=== PATIENT | female | born 1945 | race Caucasian/White ===

== ENCOUNTER 2017-01-24 22:27 | Inpatient (IN) | payer MEDICAID, MEDICARE, OTHER ==
[~2017-01-24] VITALS: Ht 144.8 cm; Wt 40.4 kg
[~2017-01-24 22:27] MED LIST: ALBU2.5V13 IH; ASPI81TA31 PO; ATOR20TA PO; HYDR-4076 PO; IPRA0.2S6 NEB; LEVO500T2 PO; METO25TA6 PO; OLAN5TAB3 PO; PANT40TA2 PO; PREDNISONE PO; QUET25TA PO
--- NOTE | 2017-01-24 22:40 | NUR ---
Pt radha from [facility] for medical clearance prior to MHU admission. Pt on a 5150 for gravely disabled. Pt calm and cooperative. Resting in position of comfort for self. Awaiting further eval.
[2017-01-24] MEDS ORDERED: LISI-603 PO (22:50)
[2017-01-24] MEDS ORDERED: MAGN400O6 PO (22:50)
[2017-01-24] MEDS ORDERED: BISA10SU12 RC (22:50)
[2017-01-24] MEDS ORDERED: NA P133E RC (22:50)
[2017-01-24] MEDS ORDERED: BLOO-360 IN (22:50)
[2017-01-24] MEDS ORDERED: [UNRECOGNIZED DRUG - CODE] PO (22:50)
[2017-01-24] MEDS ORDERED: MULT1TAB73 PO (22:50)
[2017-01-24] MEDS ORDERED: ACET325T53 PO (22:50)
[2017-01-24 23:53] LABS: CARBON DIOXIDE 30 mmol/L (21-32); CHLORIDE 104 mmol/L (98-107); CREATININE 1.1 mg/dL (0.6-1.3); GLUCOSE 100 mg/dL (74-106); POTASSIUM 4.4 mmol/L (3.5-5.1); UREA NITROGEN, BLOOD 35 mg/dL (7-18)
--- NOTE | 2017-01-24 23:55 | NUR ---
Pt ambulated to and from br with steady shuffled gait. Pt resting in position of comfort for self. Pt remains calm and cooperative
[2017-01-24 23:59] LABS: BASOPHILS % (AUTO) 0.6 % (0.0-2.0); EOSINOPHILS # (AUTO) 0.1 K/uL (0.0-0.7); EOSINOPHILS % (AUTO) 1.8 % (0.0-7.0); HEMATOCRIT 36.9 % (37-47); HEMOGLOBIN 12.2 G/DL (12.0-16.0); LYMPHOCYTES # (AUTO) 3.6 K/UL (0.8-4.8); LYMPHOCYTES % (AUTO) 45.9 % (20.5-51.5); MEAN CORPUSCULAR HEMOGLOBIN 29.5 UUG (27.0-31.0); MEAN CORPUSCULAR HGB CONC 33 g/dL (32.0-37.0); MEAN CORPUSCULAR VOLUME 89.1 FL (81.0-99.0); MONOCYTES # (AUTO) 0.6 K/UL (0.1-1.30); MONOCYTES % (AUTO) 8.6 % (0.0-11.0); NEUTROPHILS # (AUTO) 3.2 K/UL (1.8-8.9); NEUTROPHILS % (AUTO) 43.1 % (38.5-71.5); PLATELET COUNT (AUTO) 171 K/UL (150-450); RED BLOOD CELL COUNT(AUTO) 4.14 MIL/UL (4.2-5.4); WHITE BLOOD COUNT (AUTO) 7.5 K/UL (4.0-11.2)
[2017-01-25 00:14] LABS: ETHANOL < 3 MG/DL (0-0)
[2017-01-25 00:15] LABS: ALANINE AMINOTRANSFERASE 19 U/L (14-59); ALKALINE PHOSPHATASE 78 U/L (50-136); ASPARTATE AMINOTRANSFERASE 20 U/L (15-37); BILIRUBIN,DIRECT 0.1 mg/dL (0.0-0.2); BILIRUBIN,TOTAL 0.4 mg/dL (0.2-1.0); TOTAL PROTEIN, SERUM 7.6 g/dL (6.4-8.2)
[2017-01-25 00:16] LABS: ACETAMINOPHEN < 2.0 ug/mL (10-30)
--- NOTE | 2017-01-25 00:30 | NUR ---
Pt medically cleared for admission.
[2017-01-25 00:40] LABS: *BILIRUBIN,URIN NEGATIVE (NEGATIVE); *BLOOD, URINE Trace-lysed (NEGATIVE); *COLOR,URINE STRAW (YELLOW); *KETONES,URINE TRACE (NEGATIVE); *PROTEIN,URINE NEGATIVE (NEGATIVE); *UROBILINOGEN,URINE 0.2 E.U./dl (NORMAL); LEUKOCYTE ESTERASE ,URINE 1+ (NEGATIVE); NITRITE, URINE NEGATIVE (NEGATIVE); UGLUCOSE NEGATIVE (NEGATIVE)
[2017-01-25 00:53] LABS: *CLARITY,URINE HAZY (CLEAR)
[2017-01-25 00:54] LABS: BACTERIA,URINE MODERATE /HPF (NONE SEEN); SQUAMOUS EPITHELIAL CELL,UR FEW /HPF (NONE SEEN); WBC,URINE 20-50 /HPF (0-3)
--- NOTE | 2017-01-25 01:00 | NUR ---
Pt resting in position of comfort for self. Resp even and unlabored. No obvious signs of distress. Pt remains calm and cooperative.
[2017-01-25 01:13] LABS: *AMPHETAMINE, URINE NEGATIVE (NEGATIVE); *BARBITURATE, URINE NEGATIVE (NEGATIVE); *CANNABINOID, URINE NEGATIVE (NEGATIVE); *COCCAINE, URINE NEGATIVE (NEGATIVE); *OPIATE, URINE NEGATIVE (NEGATIVE); *PHENCYCLIDINE SCREEN,URINE NEGATIVE (NEGATIVE)
--- NOTE | 2017-01-25 02:23 | NUR ---
Report called to JEANCARLOS Lunsford. Preparing to transfer pt to [facility].
[2017-01-25] MEDS ORDERED: LEVOFLOXACIN 500 MG TABLET PO ONE (02:30)
--- NOTE | 2017-01-25 02:32 | NUR ---
Re-entered room after given pt her ABT PO. She had spit it out behind the bed and refused any further medication. Dr. Ryan notified.
[2017-01-25] MEDS ORDERED: LEVOFLOXACIN 500 MG TABLET ONE (02:41)
[2017-01-25] MEDS ORDERED: LORAZEPAM 0.5 MG TABLET PO PRN ×2 (03:15→03:30)
[2017-01-25] MEDS ORDERED: TEMAZEPAM 7.5 MG CAPSULE PO PRN (03:15)
[2017-01-25] MEDS ORDERED: MAGNESIUM HYDROXIDE 30 ML LIQUID UDC PO PRN (03:15)
[2017-01-25] MEDS ORDERED: MAG HYDROX/AL HYDROX/SIMETH 30 ML LIQUID UDC PO PRN (03:15)
[2017-01-25] MEDS ORDERED: ACETAMINOPHEN 325 MG TABLET PO PRN (03:15)
[2017-01-25 03:34] VITALS: BP 176/97
--- NOTE | 2017-01-25 04:09 | NUR ---
GPS: Admitted to unit earlier a 71 yr.old female under the care and supervision of / who was medically cleared at our E.R. Pt.is alert to self only. Confused,disoriented and with poor insight to present situation. Pt.is anxious,restless,uncooperative and suspicious. Re-directed and re-assured frequently by staff. Skin assessment/belongings list completed. Safety emphasized. Pt.on a 72 hour hold for GD. Pt.has been refusing meds.,screaming at staff,refusing care,and has not been sleeping,per hold. Will monitor behavior.
[2017-01-25] MEDS ORDERED: HYDR25TA86 PO (04:42)
[2017-01-25] MEDS ORDERED: APRESOLINE PO (04:59)
[2017-01-25] MEDS ORDERED: [UNRECOGNIZED DRUG - OTHER] (04:59)
--- NOTE | 2017-01-25 10:00 | NUR ---
MED RECON: SPOKE WITH DR MAHER, STATES HE WILL RECONCILE MEDS.
[2017-01-25] MEDS: BENZTROPINE MESYLATE 0.5 MG TABLET PO SCH ×2 (11:45→17:00)
[2017-01-25] MEDS: HALOPERIDOL 2 MG TABLET PO SCH ×2 (11:45→17:00)
[2017-01-25] MEDS: LISINOPRIL 20 MG TABLET PO SCH (12:30)
[2017-01-25] MEDS ORDERED: BISACODYL 10 MG SUPP.RECT RC PRN (12:30)
[2017-01-25] MEDS ORDERED: FLEET ENEMA 133 ML BOTTLE RC PRN (12:30)
--- NOTE | 2017-01-25 12:31 | NUR ---
APPROACHED PATIENT CALMLY AND OFFERED HER MEDICATIONS BUT PATIENT BECAME ANGRY AND YELLING STATING " No DORIAN MEDICINA , NO DORIAN COMIDA"
[2017-01-25] MEDS: hydrALAZINE HCL 10 MG TABLET PO SCH ×2 (14:00→22:00)
[2017-01-25] MEDS ORDERED: HYDRALAZINE PO SCH (14:00)
--- NOTE | 2017-01-25 14:06 | NUR ---
UR Note: ISMA spoke with family preservation caseworker Sharita at [facility] [[phone]]. Per family preservation caseworker, patient is authorized through 01/27/17. Authorization #: [id number]. ISMA will follow up with family preservation caseworker on 01/27.
[2017-01-25] MEDS: ATORVASTATIN 10 MG TABLET PO SCH (20:12)
[2017-01-25] MEDS: CEFTRIAXONE 1 G VIAL IM SCH (20:12)
[2017-01-25] MEDS ORDERED: ATORVASTATIN 20 MG TABLET PO SCH (21:00)
[2017-01-26] MEDS: hydrALAZINE HCL 10 MG TABLET PO SCH ×3 (06:00→22:00)
[2017-01-26] MEDS: ASPIRIN 81 MG TAB.CHEW PO SCH (09:00)
[2017-01-26] MEDS ORDERED: Medication Not On Formulary EA (Multivitamins (Multivitamin) 1 EACH) PO SCH (09:00)
[2017-01-26] MEDS: MULTIVITAMINS,THERAPEUTIC TABLET PO SCH (09:00)
[2017-01-26] MEDS: HALOPERIDOL 2 MG TABLET PO SCH ×2 (09:00→17:00)
[2017-01-26] MEDS: LISINOPRIL 20 MG TABLET PO SCH (09:00)
[2017-01-26] MEDS: BENZTROPINE MESYLATE 0.5 MG TABLET PO SCH ×2 (09:00→17:00)
--- NOTE | 2017-01-26 09:43 | NUR ---
Offered morning medications twice this morning but patient strongly refused.
[2017-01-26] MEDS ORDERED: HALOPERIDOL 2 MG TABLET PO PRN (10:00)
--- NOTE | 2017-01-26 17:39 | NUR ---
patient continue to refused to take her medications due at 1700, stated " IO don't want it."
[2017-01-26 20:26] VITALS: BP 109/59
[2017-01-26] MEDS: ATORVASTATIN 10 MG TABLET PO SCH (21:00)
[2017-01-26] MEDS: CEFTRIAXONE 1 G VIAL IM SCH (21:00)
--- NOTE | 2017-01-26 21:26 | NUR ---
PATIENT RECEIVED IN ROOM AWAKE. PATIENT IS EASILY AGITATED, AND EASILY IRRITABLE WILL CONTINUE TO MONITOR AND REDIRECT NEEDED. PATIENT CONTINUES TO REFUSE MEDICATION AND VITAL SIGNS EXPLAINED THE IMPORTANCE OF TAKING MEDICATION AND VITAL SIGNS, CONTINUES TO REFUSE INCREASED ANGER NOTED. BED IN LOWEST POSITION, BED LOCKED. NO AGGRESSIVE OR COMBATIVE BEHAVIOR NOTED WILL CONTINUE TO MONITOR AND REDIRECT NEEDED.
[2017-01-27] MEDS: hydrALAZINE HCL 10 MG TABLET PO SCH ×3 (06:00→22:00)
[2017-01-27] MEDS: ASPIRIN 81 MG TAB.CHEW PO SCH (09:00)
[2017-01-27] MEDS: HALOPERIDOL 2 MG TABLET PO SCH ×2 (09:00→17:00)
[2017-01-27] MEDS: LISINOPRIL 20 MG TABLET PO SCH (09:00)
[2017-01-27] MEDS: MULTIVITAMINS,THERAPEUTIC TABLET PO SCH (09:00)
[2017-01-27] MEDS: BENZTROPINE MESYLATE 0.5 MG TABLET PO SCH ×2 (09:00→17:00)
--- NOTE | 2017-01-27 09:19 | NUR ---
PT SITTING ON THE BED IN HER ROOM. REFUSED ALL AM MEDS DESPITE ENCOURAGEMENT. STATED "NO I DON'T NEED MEDICATION, I FINISHED BREAKFAST, NO I WILL NOT TAKE THE MEDICATION". INCREASED ANGER NOTED. REDIRECTION PROVIDED. WILL CONTINUE TO MONITOR.
--- NOTE | 2017-01-27 11:34 | NUR ---
Initial DC Plan: Patient currently resides at [facility] [facility] [place] [address]; [place] ISMA spoke with Fermín at [facility] who confirmed patient will be accepted back to the facility upon discharge. ISMA will follow up with MD, patient, and patient's guardian Taran Last [[phone]] to discuss appropriate discharge plans. SW will form a safe and proper discharge.
--- NOTE | 2017-01-27 11:35 | NUR ---
UR Note: UR Note: ISMA provided clinicals over the phone to showcase maker Sharita at [facility] [[phone]]. Per showcase maker, patient is authorized through 01/30/17. Review is needed on 01/31. Authorization #: [id number]. ISMA will follow up with showcase maker on 01/31.v
--- NOTE | 2017-01-27 14:21 | NUR ---
TRIGGER FOR LOW BMI 18.8, PATIENT IS 71 Y/O FEMALE WHO PRESENT FOR BEHAVIOR ESCALATION TOLERATING CURRENT DIET(CCHO60,CARDIAC,MSOFT),EATING < 50% OF MEALS,ADD BOOST GLUOCOSE CONTORL BID,INFORMED RN DURING MENTAL HEALTH MEETING REC LIBERALIZE DIET BLOOD SUGAR 100-WNL,POC 86 BMI 18.8-UNDERWEIGHT,CURRENT WT IS 87LB, PHYSICAL ASSESSMENT REPORT SUGGEST MILD/MODERATE MUSCLE/FAT LOSS BM PRESENT,SKIN INTACT LABS: 01/24 RBC-4.14,HCT 36.9,BUN-35(H) NUTRITION DIAGNOSIS: POOR PO INTAKE RELATED TO AMS, EVIDENCED BY PO INTAKE < 50% OF MEALS INTERVENTION: REC BOOST BID,LIBERALIZE DIET MONITOR:PO INTAKE,WT,NEW LABS OUTCOME: IMPROVE IN PO INTAKE>50% IN 2-5 DAYS NO SIGNIFICANT WEIGHT CHANGES DURING HOSPITAL STAY NO SKIN BREAKDOWN NO N/V/D/C Addendum: 01/27/17 at [address] Amended: Links added.
--- NOTE | 2017-01-27 17:04 | NUR ---
PT REFUSED PM MEDS DESPITE ENCOURAGEMENT AND EDUCATION. OFFERED X2 PT STILL REFUSED. WILL MONITOR.
[2017-01-27] MEDS: ATORVASTATIN 10 MG TABLET PO SCH (20:57)
[2017-01-27] MEDS: CEFTRIAXONE 1 G VIAL IM SCH (20:57)
[2017-01-28] MEDS: hydrALAZINE HCL 10 MG TABLET PO SCH ×3 (06:00→22:00)
[2017-01-28] MEDS: HALOPERIDOL 2 MG TABLET PO SCH ×2 (08:50→16:28)
[2017-01-28] MEDS: BENZTROPINE MESYLATE 0.5 MG TABLET PO SCH ×2 (08:50→17:00)
[2017-01-28] MEDS: LISINOPRIL 20 MG TABLET PO SCH (08:50)
[2017-01-28] MEDS: ASPIRIN 81 MG TAB.CHEW PO SCH (08:50)
[2017-01-28] MEDS: MULTIVITAMINS,THERAPEUTIC TABLET PO SCH (08:51)
[2017-01-28] MEDS: HALOPERIDOL LACTATE 5 MG/1 ML VIAL IM PRN (16:31)
[2017-01-28] MEDS: CEFTRIAXONE 1 G VIAL IM SCH (20:05)
[2017-01-28] MEDS: ATORVASTATIN 10 MG TABLET PO SCH (20:06)
[2017-01-28 21:51] VITALS: BP 158/76
--- NOTE | 2017-01-28 22:06 | NUR ---
Pt REMAINS ANGRY AND LABILE. REFUSED 2200 VS AND HYDRALAZINE. Pt REFUSED EDUCATION.
[2017-01-29] MEDS: hydrALAZINE HCL 10 MG TABLET PO SCH ×3 (06:00→22:59)
--- NOTE | 2017-01-29 06:16 | NUR ---
Pt REFUSED 0600 VS AN HYDRALAZINE. EDUCATION PROVIDED TO Pt REGARDING RISKS OF NOT TAKING BP MEDICATIONS, Pt YELLED GET OUT!" Pt ALSO REFUSED AM SHOWER. SLEPT 8 HOURS.
[2017-01-29] MEDS: ASPIRIN 81 MG TAB.CHEW PO SCH (08:53)
[2017-01-29] MEDS: BENZTROPINE MESYLATE 0.5 MG TABLET PO SCH ×2 (08:53→16:28)
[2017-01-29] MEDS: MULTIVITAMINS,THERAPEUTIC TABLET PO SCH (08:54)
[2017-01-29] MEDS: LISINOPRIL 20 MG TABLET PO SCH (08:54)
[2017-01-29] MEDS: HALOPERIDOL 2 MG TABLET PO SCH ×2 (08:54→16:33)
[2017-01-29] MEDS: HALOPERIDOL LACTATE 5 MG/1 ML VIAL IM PRN ×2 (08:55→16:28)
[2017-01-29 17:33] VITALS: BP 120/60
[2017-01-29 20:09] VITALS: BP 143/72
[2017-01-29] MEDS: ATORVASTATIN 10 MG TABLET PO SCH (20:12)
[2017-01-29] MEDS: CEFTRIAXONE 1 G VIAL IM SCH (20:13)
[2017-01-30] MEDS: hydrALAZINE HCL 10 MG TABLET PO SCH ×3 (06:30→22:00)
--- NOTE | 2017-01-30 07:05 | NUR ---
Pt REF VS AND HYDRALAZINE
[2017-01-30 07:30] VITALS: BP 176/79
[2017-01-30 08:05] LABS: BASOPHILS % (AUTO) 0.2 % (0.0-2.0); EOSINOPHILS # (AUTO) 0.2 K/uL (0.0-0.7); EOSINOPHILS % (AUTO) 2.8 % (0.0-7.0); HEMATOCRIT 35.3 % (37-47); HEMOGLOBIN 11.8 G/DL (12.0-16.0); LYMPHOCYTES # (AUTO) 2.9 K/UL (0.8-4.8); LYMPHOCYTES % (AUTO) 50.1 % (20.5-51.5); MEAN CORPUSCULAR HGB CONC 34 g/dL (32.0-37.0); MEAN CORPUSCULAR VOLUME 89.2 FL (81.0-99.0); MONOCYTES # (AUTO) 0.6 K/UL (0.1-1.30); MONOCYTES % (AUTO) 10.2 % (0.0-11.0); NEUTROPHILS # (AUTO) 2.2 K/UL (1.8-8.9); NEUTROPHILS % (AUTO) 36.7 % (38.5-71.5); PLATELET COUNT (AUTO) 155 K/UL (150-450); RED BLOOD CELL COUNT(AUTO) 3.95 MIL/UL (4.2-5.4); WHITE BLOOD COUNT (AUTO) 5.9 K/UL (4.0-11.2)
[2017-01-30] MEDS: LISINOPRIL 20 MG TABLET PO SCH (08:35)
[2017-01-30] MEDS: BENZTROPINE MESYLATE 0.5 MG TABLET PO SCH ×2 (09:00→17:00)
[2017-01-30] MEDS: ASPIRIN 81 MG TAB.CHEW PO SCH (09:00)
[2017-01-30] MEDS: MULTIVITAMINS,THERAPEUTIC TABLET PO SCH (09:00)
[2017-01-30] MEDS: HALOPERIDOL 2 MG TABLET PO SCH ×2 (09:00→17:00)
[2017-01-30] MEDS: HALOPERIDOL LACTATE 5 MG/1 ML VIAL IM PRN ×2 (09:09→17:31)
[2017-01-30 09:49] LABS: ALANINE AMINOTRANSFERASE 20 U/L (14-59); ALKALINE PHOSPHATASE 71 U/L (50-136); ASPARTATE AMINOTRANSFERASE 30 U/L (15-37); BILIRUBIN,TOTAL 0.2 mg/dL (0.2-1.0); CARBON DIOXIDE 30 mmol/L (21-32); CHLORIDE 110 mmol/L (98-107); CHOLESTEROL 175 mg/dL (<200); CREATININE 1.1 mg/dL (0.6-1.3); GLUCOSE 93 mg/dL (74-106); HDL CHOLESTEROL 66 mg/dL (40-60); MAGNESIUM 2.5 mg/dL (1.8-2.4); POTASSIUM 4.7 mmol/L (3.5-5.1); TRIGLYCERIDES 64 MG/DL (30-150); UREA NITROGEN, BLOOD 40 mg/dL (7-18)
[2017-01-30 15:49] VITALS: BP 155/76
[2017-01-30 20:24] VITALS: BP 154/81
[2017-01-30] MEDS: CEFTRIAXONE 1 G VIAL IM SCH (20:25)
[2017-01-30] MEDS: ATORVASTATIN 10 MG TABLET PO SCH (20:25)
[2017-01-31] MEDS: hydrALAZINE HCL 10 MG TABLET PO SCH ×3 (06:00→21:27)
--- NOTE | 2017-01-31 07:05 | NUR ---
Pt REFUSED 2200/0600 VS AND HYDRALAZINE. CONTINUES TO REFUSE ALL PO MEDICATIONS. EDUCATION REINFORCED.
[2017-01-31 07:30] VITALS: BP 147/64
[2017-01-31] MEDS: ASPIRIN 81 MG TAB.CHEW PO SCH (09:00)
[2017-01-31] MEDS: MULTIVITAMINS,THERAPEUTIC TABLET PO SCH (09:00)
[2017-01-31] MEDS: BENZTROPINE MESYLATE 0.5 MG TABLET PO SCH ×2 (09:00→17:00)
[2017-01-31] MEDS: LISINOPRIL 20 MG TABLET PO SCH (09:00)
[2017-01-31] MEDS: HALOPERIDOL 2 MG TABLET PO SCH (09:00)
[2017-01-31] MEDS: HALOPERIDOL LACTATE 5 MG/1 ML VIAL IM PRN ×2 (09:43→17:30)
[2017-01-31] MEDS: DOCUSATE SODIUM 100 MG CAPSULE PO SCH ×2 (10:30→21:00)
--- NOTE | 2017-01-31 10:47 | NUR ---
UR Note: ISMA left clinicals over voicemail for case picker Sharita at [facility] [[phone]]. Awaiting authorization.
[2017-01-31 15:35] VITALS: BP 136/60
[2017-01-31] MEDS ORDERED: HALOPERIDOL 2 MG TABLET PO SCH (17:00)
[2017-01-31] MEDS: HALOPERIDOL 5 MG TABLET PO SCH (17:00)
[2017-01-31 20:15] VITALS: BP 137/70
[2017-01-31] MEDS: ATORVASTATIN 10 MG TABLET PO SCH (21:00)
[2017-01-31] MEDS: CEFTRIAXONE 1 G VIAL IM SCH (21:33)
--- NOTE | 2017-01-31 22:00 | NUR ---
received to care, lying in bed, isolative, but pleasant when engaged. refused all PO medications. was cooperative with IM recephin. refused a snack, but did take some water, and juice. as of 2199, she appears to be asleep. no distress noted. will continue to monitor closely.
[2017-02-01] MEDS: hydrALAZINE HCL 10 MG TABLET PO SCH ×3 (06:00→21:37)
--- NOTE | 2017-02-01 06:00 | NUR ---
slept 8.5 hours, total. refused AM hydralazine, and b/p check.
[2017-02-01 07:30] VITALS: BP 177/89
[2017-02-01] MEDS: HALOPERIDOL 5 MG TABLET PO SCH ×2 (08:29→16:52)
[2017-02-01] MEDS: LISINOPRIL 20 MG TABLET PO SCH (08:29)
[2017-02-01] MEDS: ASPIRIN 81 MG TAB.CHEW PO SCH (08:32)
[2017-02-01] MEDS: DOCUSATE SODIUM 100 MG CAPSULE PO SCH ×2 (08:32→21:00)
[2017-02-01] MEDS: MULTIVITAMINS,THERAPEUTIC TABLET PO SCH (08:32)
[2017-02-01] MEDS: BENZTROPINE MESYLATE 0.5 MG TABLET PO SCH ×2 (08:32→16:52)
--- NOTE | 2017-02-01 08:40 | NUR ---
UR Note: Per transplant case manager Sharita at [facility] [[phone]], patient is authorized through 02/02. Next review is due on 02/02.
--- NOTE | 2017-02-01 13:18 | NUR ---
PT REFUSED BP CHECKED AND MEDICATION DESPITE ENCOURAGEMENT AND EDUCATION. WILL MONITOR
[2017-02-01] MEDS: HALOPERIDOL LACTATE 5 MG/1 ML VIAL IM PRN (16:56)
[2017-02-01 20:56] VITALS: BP 143/68
[2017-02-01] MEDS: ATORVASTATIN 10 MG TABLET PO SCH (21:00)
--- NOTE | 2017-02-01 22:00 | NUR ---
received to care, lying in bed, asleep, isolative, and non interactive with peers. refused all medications. also refused food, and fluids, which were left at the bedside. as of 2199, she remains asleep. no distress noted. will continue to monitor closely.
--- NOTE | 2017-02-02 05:00 | NUR ---
is now awake. slept 9.25 hours, total.
[2017-02-02] MEDS: hydrALAZINE HCL 10 MG TABLET PO SCH ×3 (06:00→22:00)
--- NOTE | 2017-02-02 06:00 | NUR ---
refused AM hydralazine, and b/p check.
[2017-02-02 07:14] LABS: BASOPHILS % (AUTO) 0.5 % (0.0-2.0); EOSINOPHILS # (AUTO) 0.2 K/uL (0.0-0.7); HEMATOCRIT 38.4 % (31.2-41.9); LYMPHOCYTES % (AUTO) 52.7 % (20.5-51.5); MEAN CORPUSCULAR HEMOGLOBIN 30.3 uug (24.7-32.8); MEAN CORPUSCULAR HGB CONC 34 g/dL (32.3-35.6); MEAN CORPUSCULAR VOLUME 89.6 fL (75.5-95.3); MONOCYTES # (AUTO) 0.8 K/uL (2.0-10.0); NEUTROPHILS # (AUTO) 3.5 K/uL (1.8-8.9); NEUTROPHILS % (AUTO) 36.8 % (38.5-71.5); PLATELET COUNT (AUTO) 166 K/uL (179-408); RED BLOOD CELL COUNT(AUTO) 4.29 MIL/uL (3.63-4.92); WHITE BLOOD COUNT (AUTO) 9.5 K/uL (3.8-11.8)
[2017-02-02 07:30] VITALS: BP 162/72
[2017-02-02 08:20] LABS: THYROID STIMULATING HORMONE 4.427 mIU/mL (0.358-3.740)
[2017-02-02 08:27] LABS: ALANINE AMINOTRANSFERASE 28 U/L (14-59); ALKALINE PHOSPHATASE 68 U/L (50-136); ASPARTATE AMINOTRANSFERASE 45 U/L (15-37); BILIRUBIN,TOTAL 0.4 mg/dL (0.2-1.0); CARBON DIOXIDE 30 mmol/L (21-32); CHLORIDE 107 mmol/L (98-107); CREATININE 1.1 mg/dL (0.6-1.3); GLUCOSE 95 mg/dL (74-106); MAGNESIUM 2.5 mg/dL (1.8-2.4); PHOSPHOROUS 4.1 mg/dL (2.5-4.9); POTASSIUM 4.6 mmol/L (3.5-5.1); TOTAL PROTEIN, SERUM 7.8 g/dL (6.4-8.2); UREA NITROGEN, BLOOD 32 mg/dL (7-18)
[2017-02-02] MEDS: ASPIRIN 81 MG TAB.CHEW PO SCH (09:00)
[2017-02-02] MEDS: DOCUSATE SODIUM 100 MG CAPSULE PO SCH ×2 (09:00→21:00)
[2017-02-02] MEDS: LISINOPRIL 20 MG TABLET PO SCH (09:00)
[2017-02-02] MEDS: MULTIVITAMINS,THERAPEUTIC TABLET PO SCH (09:00)
[2017-02-02] MEDS: BENZTROPINE MESYLATE 0.5 MG TABLET PO SCH ×2 (09:07→17:20)
[2017-02-02] MEDS: HALOPERIDOL 5 MG TABLET PO SCH ×2 (09:07→17:20)
[2017-02-02] MEDS ORDERED: CLONIDINE-TTS 1 PATCH TD SCH (11:15)
[2017-02-02] MEDS ORDERED: HALOPERIDOL DECANOATE 50 MG/1 ML AMPUL IM ONE (12:00)
[2017-02-02 16:00] VITALS: BP 146/69
[2017-02-02 20:42] VITALS: BP 120/54
[2017-02-02] MEDS: ATORVASTATIN 10 MG TABLET PO SCH (21:00)
--- NOTE | 2017-02-02 22:00 | NUR ---
received to care, lying in bed, sleeping, but easy to awaken. refused all bedtime medications. also refused her 2199 dose of hydralazine, and b/p check (b/p at 1999 was WNL). as of 2199, she appears to be asleep. no distress noted.will continue to monitor closely.
--- NOTE | 2017-02-03 01:30 | NUR ---
pt is now awake, and wandering the hallway. continues to refuse medications. currently sitting in hallway, eating a sandwich, and drinking apple juice. remains calm, at this time. no distress noted.will continue to monitor closely.
--- NOTE | 2017-02-03 02:00 | NUR ---
appears to be asleep.
--- NOTE | 2017-02-03 06:00 | NUR ---
slept 2.0 hours, total. is now awake. assisted with AM care, and shower. was compliant with b/p check, and AM hydralazine dose. cureently sitting on her bed, eating a snack. no distress noted.
[2017-02-03] MEDS: hydrALAZINE HCL 10 MG TABLET PO SCH ×3 (06:03→22:00)
[2017-02-03 07:30] VITALS: BP 152/65
--- NOTE | 2017-02-03 08:14 | NUR ---
UR Note: On 02/02, ISMA left clinicals over voicemail for shoe parts caser Sharita at [facility] [[phone]]. ISMA called Sharita again in the afternoon to follow up. There was no answer, ISMA left a voicemail. ISMA will follow up with [facility] again today.
[2017-02-03] MEDS: DOCUSATE SODIUM 100 MG CAPSULE PO SCH ×2 (09:00→21:02)
[2017-02-03] MEDS: MULTIVITAMINS,THERAPEUTIC TABLET PO SCH (09:00)
[2017-02-03] MEDS: ASPIRIN 81 MG TAB.CHEW PO SCH (09:00)
[2017-02-03] MEDS: LISINOPRIL 20 MG TABLET PO SCH (09:27)
[2017-02-03] MEDS: BENZTROPINE MESYLATE 0.5 MG TABLET PO SCH ×2 (09:28→17:00)
[2017-02-03] MEDS: HALOPERIDOL 5 MG TABLET PO SCH ×2 (09:28→17:00)
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
[2017-02-03] MEDS ORDERED: BENZTROPINE MESYLATE 2 MG/2 ML AMPUL IM STA ×2 (13:47→17:47)
[2017-02-03] MEDS ORDERED: LORAZEPAM 2 MG/1 ML VIAL IM STA ×2 (13:47→17:47)
[2017-02-03] MEDS ORDERED: HALOPERIDOL LACTATE 5 MG/1 ML VIAL IM STA ×2 (13:47→17:47)
--- NOTE | 2017-02-03 14:23 | NUR ---
Pt attempting to AWOL standing in front of locked doors, hyperverbal aggressive, not following directions, threatening staff. Pt is combative when redirecting her. Pt given IM injections of Haldol 1mg, Ativan 1mg, Cogentin 1 mg. Pt continues to curse, yell, and attempt to AWOL after injection.
[2017-02-03 15:00] VITALS: BP 157/61
--- NOTE | 2017-02-03 15:19 | NUR ---
UR Note: ISMA left clinicals over voicemail for disease case manager rn Sharita at [facility] [[phone]]. Awaiting authorization.
--- NOTE | 2017-02-03 16:30 | NUR ---
PT IS STANDING RIGHT IN FRONT OF THE LOCKED DOORS, NOT FOLLOWING DIRECTIONS TO NOT STAND BY DOOR. PT IS DELUSIONAL , KEEPS SCREAMING "I NEED MY PANTIES BECAUSE IM LEAVING" PT TRYING TO AWOL WHEN STAFF OR VISITORS COME THROUGH DOORS. TAKES MULTIPLE STAFF MEMBERS TO PHYSICALLY REMOVE PT AWAY DOOR. PT IS YELLING, CURSING, THREATENING STAFF. COMBATIVE WHEN REDIRECTED.
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
[2017-02-03 20:33] VITALS: BP 106/52
[2017-02-03] MEDS: ATORVASTATIN 10 MG TABLET PO SCH (21:02)
[2017-02-04] MEDS: hydrALAZINE HCL 10 MG TABLET PO SCH ×3 (06:20→22:09)
[2017-02-04 07:30] VITALS: BP 101/61
[2017-02-04] MEDS: ASPIRIN 81 MG TAB.CHEW PO SCH (08:26)
[2017-02-04] MEDS: BENZTROPINE MESYLATE 0.5 MG TABLET PO SCH ×2 (08:26→17:25)
[2017-02-04] MEDS: DOCUSATE SODIUM 100 MG CAPSULE PO SCH ×2 (08:26→20:20)
[2017-02-04] MEDS: HALOPERIDOL 5 MG TABLET PO SCH ×2 (08:26→17:26)
[2017-02-04] MEDS: MULTIVITAMINS,THERAPEUTIC TABLET PO SCH (08:26)
[2017-02-04] MEDS: LISINOPRIL 20 MG TABLET PO SCH (08:32)
--- NOTE | 2017-02-04 08:46 | NUR ---
UR Note: ISMA left clinicals over voicemail for case aide Sharita at [facility] [[phone]]. Awaiting authorization.
[2017-02-04] MEDS ORDERED: HALOPERIDOL DECANOATE 50 MG/1 ML AMPUL IM ONE (09:00)
[2017-02-04] MEDS ORDERED: HALOPERIDOL 2 MG TABLET PO PRN (10:30)
[2017-02-04] MEDS ORDERED: HALOPERIDOL 5 MG TABLET PO PRN (10:45)
--- NOTE | 2017-02-04 12:40 | NUR ---
UR Note: ISMA spoke with Deloris at [facility] [[phone]] who stated patient is authorized through the weekend. Next review is due 02/07.
[2017-02-04] MEDS: ATORVASTATIN 10 MG TABLET PO SCH (20:20)
[2017-02-04 20:55] VITALS: BP 147/73
--- NOTE | 2017-02-05 06:00 | NUR ---
PATIENT WAS UNABLE TO SLEEP THROUGH THE NIGHT. SHE WAS NOTED DELUSIONAL, FLIGHT OF IDEAS, POOR INSIGHT. SHE REFUSED PO PRN MEDICATION FOR INSOMNIA; HOWEVER, SHE TOOK ATIVAN 0.5MG PO PRN FOR AGITATION AT APPROX 0557. WILL CONTINUE TO MONITOR.
[2017-02-05] MEDS: hydrALAZINE HCL 10 MG TABLET PO SCH ×3 (06:25→23:10)
--- NOTE | 2017-02-05 06:54 | NUR ---
PATIENT REFUSED BLOOD DRAWN THIS MORNING. MULTIPLE REDIRECTION WERE GIVEN; HOWEVER, SHE REFUSED.
[2017-02-05] MEDS: ASPIRIN 81 MG TAB.CHEW PO SCH (08:52)
[2017-02-05] MEDS: MULTIVITAMINS,THERAPEUTIC TABLET PO SCH (08:52)
[2017-02-05] MEDS: HALOPERIDOL 5 MG TABLET PO SCH ×2 (08:52→17:00)
[2017-02-05] MEDS: DOCUSATE SODIUM 100 MG CAPSULE PO SCH ×2 (08:52→21:00)
[2017-02-05] MEDS: BENZTROPINE MESYLATE 0.5 MG TABLET PO SCH ×2 (08:52→17:00)
[2017-02-05] MEDS: HALOPERIDOL LACTATE 5 MG/1 ML VIAL IM PRN (08:52)
[2017-02-05] MEDS: LISINOPRIL 20 MG TABLET PO SCH (08:52)
[2017-02-05] MEDS ORDERED: OLANZAPINE 10 MG VIAL IM ONE (12:30)
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
--- NOTE | 2017-02-05 13:00 | NUR ---
PT APPEARS TO HAVE GARBLED SPEECH AND HER TONGUE IS SLIGHTLY PROTRUDING FROM HER MOUTH WHILE SHE SPEAKS. NO DIFFICULTY SWALLOWING OR BREATHING. NOTIFIED DR POOLE "IT IS JUST THE MEDICATION, KEEP HER HYDRATED TO FLUSH IT OUT OF HER SYSTEM AND KEEP AN EYE ON HER. HOLD THE 1700 MEDS."
--- NOTE | 2017-02-05 14:00 | NUR ---
PT SPEECH AND TONGUE IS BACK TO BASELINE. PT CONTINUES TO BE AGGITATED, ATTACK STAFF, HAVE NOMADIC BEHAVIOR AND NEED FREQUENT REDIRECTION.
[2017-02-05 15:07] VITALS: BP 152/71
--- NOTE | 2017-02-05 19:45 | NUR ---
Patient noted in the day room, by the glass door, agitated and demanding staff to open the glass door so she could leave. Ativan 0.5mg PO PRN for agitation was offered, however patient refused. She agreed to have her vital signs taken, she stated, "I have to let you take my blood pressure if I want to leave." will continue to monitor.
[2017-02-05 20:04] VITALS: BP 170/89
--- NOTE | 2017-02-05 20:15 | NUR ---
Patient was noted in her room, in bed. QHS PO medications Lipitor and Colace were offered; however, patient refused, multiple redirection were given, yet refused. she stated that she did not need any medication. will continue to monitor.
[2017-02-05] MEDS: ATORVASTATIN 10 MG TABLET PO SCH (21:00)
--- NOTE | 2017-02-05 22:00 | NUR ---
patient noted resting in her room. Hydralazine 20mg PO Q8hrs was offered; however pt refused. multiple redirection given still refused. will continue to offered.
--- NOTE | 2017-02-05 23:10 | NUR ---
Patient is resting in her bed. Hydralazine 20mg PO Q8hrs was given.
[2017-02-06] MEDS: hydrALAZINE HCL 10 MG TABLET PO SCH ×3 (05:57→21:25)
--- NOTE | 2017-02-06 06:39 | NUR ---
PATIENT SLEPT 7.30HRS THROUGH THE NIGHT. SHE WAS COMPLIANT WITH V/S AND AM PO MEDICATION. HAD A SHOWER THIS MORNING WELL.
[2017-02-06 07:30] VITALS: BP 97/57
[2017-02-06] MEDS: HALOPERIDOL 5 MG TABLET PO SCH ×2 (08:44→16:08)
[2017-02-06] MEDS: BENZTROPINE MESYLATE 0.5 MG TABLET PO SCH ×2 (08:44→16:08)
[2017-02-06] MEDS: DOCUSATE SODIUM 100 MG CAPSULE PO SCH ×2 (08:44→20:12)
[2017-02-06] MEDS: ASPIRIN 81 MG TAB.CHEW PO SCH (08:44)
[2017-02-06] MEDS: LISINOPRIL 20 MG TABLET PO SCH (08:45)
[2017-02-06] MEDS: MULTIVITAMINS,THERAPEUTIC TABLET PO SCH (08:45)
[2017-02-06] MEDS: HALOPERIDOL LACTATE 5 MG/1 ML VIAL IM PRN ×2 (08:47→16:12)
[2017-02-06] MEDS ORDERED: MAGNESIUM HYDROXIDE 30 ML LIQUID UDC PO ONE (13:30)
[2017-02-06 15:15] VITALS: BP 113/50
[2017-02-06 19:55] VITALS: BP 118/58
[2017-02-06 19:58] VITALS: BP 106/60
[2017-02-06] MEDS: ATORVASTATIN 10 MG TABLET PO SCH (20:12)
[2017-02-07] MEDS: hydrALAZINE HCL 10 MG TABLET PO SCH ×2 (05:58→13:16)
[2017-02-07 07:30] VITALS: BP 136/62
[2017-02-07] MEDS: DOCUSATE SODIUM 100 MG CAPSULE PO SCH (08:46)
[2017-02-07] MEDS: BENZTROPINE MESYLATE 0.5 MG TABLET PO SCH ×2 (08:46→17:00)
[2017-02-07] MEDS: ASPIRIN 81 MG TAB.CHEW PO SCH (08:46)
[2017-02-07] MEDS: LISINOPRIL 20 MG TABLET PO SCH (08:47)
[2017-02-07] MEDS: HALOPERIDOL 5 MG TABLET PO SCH ×2 (08:47→17:00)
[2017-02-07] MEDS: MULTIVITAMINS,THERAPEUTIC TABLET PO SCH (08:47)
[2017-02-07] MEDS: HALOPERIDOL LACTATE 5 MG/1 ML VIAL IM PRN ×2 (10:55→17:31)
--- NOTE | 2017-02-07 12:04 | NUR ---
DC Note: Patient will be discharged to [facility] [[address] [place] [address]; ] via private transportation at 3pm. ISMA spoke with Ariel at [facility] [[phone]] who confirmed transportation arrangement [Confirmation # [id number]]. ISMA spoke with Fermín at [facility] who confirmed patient will be accepted today. ISMA left a voicemail with discharge plans for patient's conservator Taran Last [[phone]]. Patient will follow up with Dr. Gr (Extension Service Advisor) and Dr. Ceron (Psychiatrist).
[2017-02-07 16:00] VITALS: BP 116/52
--- NOTE | 2017-02-07 16:25 | NUR ---
Discharge Planning Note: ISMA spoke with Ellis at [facility] transportation services [[phone]] who stated patient will be picked up from the hospital today and transported to [facility] [[address] [place] [address]; ]. Per Ellis, pt will be provided gurney/ambulance services. Per Ellis, transportation services will call the mental health unit when a transportation time is set. Confirmation #[id number]
--- NOTE | 2017-02-07 19:25 | NUR ---
GPS: 2 attendants from [facility] here to transport pt.back to [facility]. Pt.left hospital with all her personal belongings and in stable condition. Report given to accepting nurse in the facility. No skin issues noted.
== END 2017-02-07 19:25 | DRG 885 ==
LOC: ER 22:28 → GPS 01-25 01:00
PROVIDERS: ADMIT Psychiatry & Neurology Psychosomatic Medicine; ATTEND Internal Medicine
DX: F20.0 Paranoid schizophrenia (principal); F01.51 Vascular dementia, unspecified severity, with behavioral disturbance; E44.0 Moderate protein-calorie malnutrition; E87.0 Hyperosmolality and hypernatremia; D68.59 Other primary thrombophilia; E83.41 Hypermagnesemia; D69.6 Thrombocytopenia, unspecified; N39.0 Urinary tract infection, site not specified; Z68.1 Body mass index [BMI] 19.9 or less, adult; E86.0 Dehydration; I69.919 Unspecified symptoms and signs involving cognitive functions following unspecified cerebrovascular disease; Z91.14 Patient's other noncompliance with medication regimen; I25.2 Old myocardial infarction; Z87.01 Personal history of pneumonia (recurrent); E02 Subclinical iodine-deficiency hypothyroidism; I11.9 Hypertensive heart disease without heart failure; Z74.09 Other reduced mobility; Z79.4 Long term (current) use of insulin; E11.9 Type 2 diabetes mellitus without complications; E78.5 Hyperlipidemia, unspecified; Z79.82 Long term (current) use of aspirin; Z79.899 Other long term (current) drug therapy; I25.10 Atherosclerotic heart disease of native coronary artery without angina pectoris; D64.9 Anemia, unspecified
CPT/HCPCS: 36415; 71010; 80307; 83735; 84100; 84443; 85025; 93005; A4663; G0480; G0480-TC; J0515; J0696; J1630; J1631; J2060; J2358

== ENCOUNTER 2017-11-16 12:23 | Inpatient (IN) | payer MEDICAID, OTHER ==
[~2017-11-16] VITALS: Ht 152.4 cm; Wt 38.1 kg
[~2017-11-16 12:23] MED LIST changes: +ACET325T53 PO; -ALBU2.5V13 IH; +APRESOLINE PO; +BISA10SU12 RC; +BLOO-360 IN; -HYDR-4076 PO; -IPRA0.2S6 NEB; -LEVO500T2 PO; +LISI-603 PO; +MAGN400O6 PO; -METO25TA6 PO; +MULT1TAB73 PO; +NA P133E RC; -OLAN5TAB3 PO; -PANT40TA2 PO; -PREDNISONE PO; -QUET25TA PO
--- NOTE | 2017-11-16 12:30 | NUR ---
pt in bed. pt speaking only uzbek. pt very agitated, yellling in yi. comfort measure provided.
[2017-11-16] MEDS ORDERED: OLANZAPINE 5 MG TABLET PO ONE ×2 (12:45→15:30)
[2017-11-16] MEDS ORDERED: OLANZAPINE 5 MG TABLET ONE ×2 (12:47→15:30)
[2017-11-16] MEDS ORDERED: HYDR-4075 PO (13:06)
[2017-11-16] MEDS ORDERED: DOCU100C36 PO (13:06)
[2017-11-16] MEDS ORDERED: CLON1PAT TD (13:06)
[2017-11-16] MEDS ORDERED: HYDR25TA86 GT (13:06)
[2017-11-16 13:19] LABS: BASOPHILS % (AUTO) 0.4 % (0.0-2.0); EOSINOPHILS # (AUTO) 0.2 K/uL (0.0-0.7); EOSINOPHILS % (AUTO) 3.2 % (0.0-7.0); HEMATOCRIT 34.8 % (31.2-41.9); HEMOGLOBIN 11.5 g/dL (10.9-14.3); LYMPHOCYTES # (AUTO) 2.9 K/uL (20.0-40.0); LYMPHOCYTES % (AUTO) 42.6 % (20.5-51.5); MEAN CORPUSCULAR HEMOGLOBIN 30.3 uug (24.7-32.8); MEAN CORPUSCULAR HGB CONC 33 g/dL (32.3-35.6); MEAN CORPUSCULAR VOLUME 92.1 fL (75.5-95.3); MONOCYTES # (AUTO) 0.5 K/uL (2.0-10.0); MONOCYTES % (AUTO) 7.1 % (0.0-11.0); NEUTROPHILS # (AUTO) 3.1 K/uL (1.8-8.9); NEUTROPHILS % (AUTO) 46.7 % (38.5-71.5); PLATELET COUNT (AUTO) 158 K/uL (179-408); RED BLOOD CELL COUNT(AUTO) 3.78 MIL/uL (3.63-4.92); WHITE BLOOD COUNT (AUTO) 6.7 K/uL (3.8-11.8)
--- NOTE | 2017-11-16 13:23 | NUR ---
offered pt sandwich and juice. pt refused.
[2017-11-16 13:29] LABS: CARBON DIOXIDE 26 mmol/L (21-32); CHLORIDE 107 mmol/L (98-107); GLUCOSE 95 mg/dL (74-106); POTASSIUM 3.5 mmol/L (3.5-5.1); UREA NITROGEN, BLOOD 30 mg/dL (7-18)
[2017-11-16 13:31] LABS: ETHANOL < 3 MG/DL (0-0)
[2017-11-16 13:35] LABS: ACETAMINOPHEN < 2.0 ug/mL (10-30); ALANINE AMINOTRANSFERASE 20 U/L (14-59); ALKALINE PHOSPHATASE 72 U/L (50-136); ASPARTATE AMINOTRANSFERASE 18 U/L (15-37); BILIRUBIN,DIRECT 0.1 mg/dL (0.0-0.2); BILIRUBIN,TOTAL 0.4 mg/dL (0.2-1.0); TOTAL PROTEIN, SERUM 7.3 g/dL (6.4-8.2)
[2017-11-16 15:09] LABS: *BILIRUBIN,URIN NEGATIVE (NEGATIVE); *BLOOD, URINE NEGATIVE (NEGATIVE); *CLARITY,URINE CLEAR (CLEAR); *COLOR,URINE YELLOW (YELLOW); *KETONES,URINE TRACE (NEGATIVE); *PROTEIN,URINE 1+ (NEGATIVE); *UROBILINOGEN,URINE 0.2 E.U./dl (NORMAL); LEUKOCYTE ESTERASE ,URINE 1+ (NEGATIVE); NITRITE, URINE NEGATIVE (NEGATIVE); PH,URINE 5.5 (5.0-8.0); UGLUCOSE NEGATIVE (NEGATIVE)
[2017-11-16 15:18] LABS: BACTERIA,URINE FEW /HPF (NONE SEEN); RBC,URINE 0-3 /HPF (0-3); SQUAMOUS EPITHELIAL CELL,UR FEW /HPF (NONE SEEN)
[2017-11-16] MEDS ORDERED: MAGNESIUM HYDROXIDE 30 ML LIQUID UDC PO PRN (15:30)
[2017-11-16] MEDS ORDERED: ACETAMINOPHEN 325 MG TABLET PO PRN (15:30)
[2017-11-16] MEDS ORDERED: FLEET ENEMA 133 ML BOTTLE RC PRN (15:30)
[2017-11-16] MEDS ORDERED: BISACODYL 10 MG SUPP.RECT RC PRN (15:30)
[2017-11-16 15:34] LABS: *AMPHETAMINE, URINE NEGATIVE (NEGATIVE); *BARBITURATE, URINE NEGATIVE (NEGATIVE); *CANNABINOID, URINE NEGATIVE (NEGATIVE); *COCCAINE, URINE NEGATIVE (NEGATIVE); *OPIATE, URINE NEGATIVE (NEGATIVE); *PHENCYCLIDINE SCREEN,URINE NEGATIVE (NEGATIVE)
--- NOTE | 2017-11-16 15:38 | NUR ---
TRANSFERED PT TO U.
[2017-11-16] MEDS ORDERED: DEXTROSE 50% 50 ML DISP.SYRIN IV PRN (15:45)
[2017-11-16] MEDS ORDERED: INSULIN REGULAR, HUMAN 300 UNIT/3 ML VIAL SQ PRN (15:45)
[2017-11-16] MEDS: DOCUSATE SODIUM 100 MG CAPSULE PO SCH (17:00)
[2017-11-16] MEDS: BLOOD SUGAR DIAGNOSTIC 1 EACH STRIP VI SCH ×3 (17:30→22:16)
--- NOTE | 2017-11-16 18:07 | NUR ---
1530 Admitted this 72y/o female from ER (who originally came from [facility]) transferred via wheelchair accompanied by ER nurse Arcadio. Report received from Yareli ARSHAD. Patient is alert, oriented x 1-2, confused with episodes agitation and yelling. Patient admitted to Mental Health Unit under 5150 for gravely disabled. Patient denies any pain or discomfort at this time. VS BP 131/69, P 66, RR 18, T 98.0, O2 Sat 96% at RA. Body check done, skin intact. On 72 hr hold for GD 11/16/[address] Galan notified. Dr. Laguerre notified and medications reconciled. Geropsyche admission done. Addendum: 11/16/17 at 1832 by SIRI CHONG RN Addendum: Patient refused picture taken for brownish discoloration on sacrum. Addendum: 11/16/17 at 1921 by SIRI CHONG RN correction: Patient admitted at 2059
[2017-11-16] MEDS: CLONIDINE-TTS 1 PATCH TD SCH ×2 (21:00→22:16)
[2017-11-16] MEDS: ATORVASTATIN 20 MG TABLET PO SCH (21:00)
[2017-11-16] MEDS: hydrALAZINE HCL 10 MG TABLET PO SCH (21:53)
--- NOTE | 2017-11-16 22:30 | NUR ---
received to care, ambulating about unit, yelling intermittently, refusing care, meds, and vital signs. no interactions with peers, difficult to redirect. was compliant with placement of catapres patch and accu check. otherwise remains non compliant. as of 2229, she appears to be asleep. no distress noted. will continue to monitor closely.
[2017-11-17] MEDS: hydrALAZINE HCL 10 MG TABLET PO SCH ×3 (06:00→22:00)
--- NOTE | 2017-11-17 06:00 | NUR ---
slept 4.25 hours. refused am hydralazine and b/p check, but was compliant with accucheck. currently talking to self.
[2017-11-17] MEDS: BLOOD SUGAR DIAGNOSTIC 1 EACH STRIP VI SCH ×5 (06:30→21:00)
[2017-11-17 07:13] LABS: BASOPHILS # (AUTO) 0.1 K/uL (0.0-8.0); BASOPHILS % (AUTO) 0.6 % (0.0-2.0); EOSINOPHILS # (AUTO) 0.3 K/uL (0.0-0.7); EOSINOPHILS % (AUTO) 3.1 % (0.0-7.0); HEMATOCRIT 35.9 % (31.2-41.9); HEMOGLOBIN 11.8 g/dL (10.9-14.3); LYMPHOCYTES # (AUTO) 3.9 K/uL (20.0-40.0); LYMPHOCYTES % (AUTO) 45.5 % (20.5-51.5); MEAN CORPUSCULAR HEMOGLOBIN 30.5 uug (24.7-32.8); MEAN CORPUSCULAR HGB CONC 33 g/dL (32.3-35.6); MEAN CORPUSCULAR VOLUME 92.6 fL (75.5-95.3); MONOCYTES # (AUTO) 0.7 K/uL (2.0-10.0); MONOCYTES % (AUTO) 8.2 % (0.0-11.0); NEUTROPHILS # (AUTO) 3.7 K/uL (1.8-8.9); NEUTROPHILS % (AUTO) 42.6 % (38.5-71.5); PLATELET COUNT (AUTO) 170 K/uL (179-408); RED BLOOD CELL COUNT(AUTO) 3.88 MIL/uL (3.63-4.92); WHITE BLOOD COUNT (AUTO) 8.7 K/uL (3.8-11.8)
[2017-11-17 08:07] LABS: ALANINE AMINOTRANSFERASE 21 U/L (14-59); ALKALINE PHOSPHATASE 69 U/L (50-136); ASPARTATE AMINOTRANSFERASE 23 U/L (15-37); BILIRUBIN,TOTAL 0.4 mg/dL (0.2-1.0); CARBON DIOXIDE 29 mmol/L (21-32); CHLORIDE 106 mmol/L (98-107); CREATININE 1.1 mg/dL (0.6-1.3); GLUCOSE 113 mg/dL (74-106); MAGNESIUM 2.1 mg/dL (1.8-2.4); POTASSIUM 4.5 mmol/L (3.5-5.1); TOTAL PROTEIN, SERUM 7.3 g/dL (6.4-8.2); UREA NITROGEN, BLOOD 24 mg/dL (7-18)
[2017-11-17 08:15] LABS: THYROID STIMULATING HORMONE 3.833 mIU/mL (0.358-3.740)
[2017-11-17] MEDS: ASPIRIN 81 MG TAB.CHEW PO SCH (08:26)
[2017-11-17] MEDS: DOCUSATE SODIUM 100 MG CAPSULE PO SCH ×2 (08:27→16:52)
[2017-11-17] MEDS: HALOPERIDOL 5 MG TABLET PO SCH ×2 (08:27→16:53)
[2017-11-17] MEDS: LISINOPRIL 20 MG TABLET PO SCH (08:27)
[2017-11-17] MEDS ORDERED: hydrALAZINE HCL 25 MG TABLET GT SCH (09:00)
[2017-11-17] MEDS ORDERED: HALOPERIDOL LACTATE 5 MG/1 ML VIAL IM ONE (11:00)
[2017-11-17] MEDS ORDERED: BENZTROPINE MESYLATE 2 MG/2 ML AMPUL IM ONE (11:00)
[2017-11-17] MEDS ORDERED: LORAZEPAM 2 MG/1 ML VIAL IM ONE (11:00)
--- NOTE | 2017-11-17 15:49 | NUR ---
UR Note: Received call from [facility] Wire CoinerBONNY. Assigned MHN Retort Pre Cooker for the patient is Navid Salgado ([phone]). Auth#[id number]. 3 days approved (11/16-11/18) with clinical review due on 11/18/17. SW will continue to follow-up.
[2017-11-17] MEDS: ATORVASTATIN 20 MG TABLET PO SCH (21:00)
--- NOTE | 2017-11-17 21:00 | NUR ---
pt is visible in the unit, with periods of inappropriate laughter, (laughing loud). resistive to care, Refused vital signs, medications and blood sugar accu-check. remains high awol risk, stands by the door, requiring frequent redirection. continue to monitor closely.
--- NOTE | 2017-11-18 03:20 | NUR ---
PT AWAKE IN HER ROOM, TALKING OUT LOUD, WAKING UP HER ROOM MATE. PT IS VISIBLY UPSET AND AT THE SAME TIME, HANDING OUT HER PAIR OF JANEY PANTS SAYING " I DON'T WANT IT". THEN GETS UP ABRUPTLY TO WALK OUT FROM HER ROOM. PT SITS NEAR THE NURSING STATION LAUGHING VERY LOUDLY. SNACKS OFFERED, PT DECLINED, PT WAS REDIRECTED TO THE DAY ROOM TO SIT IN THERE. PERIODICALLY, PT IS TALKING VERY LOUDLY TO HER SELF. CONTINUE TO MONITOR CLOSELY.
[2017-11-18] MEDS: hydrALAZINE HCL 10 MG TABLET PO SCH ×3 (06:00→22:00)
[2017-11-18] MEDS: BLOOD SUGAR DIAGNOSTIC 1 EACH STRIP VI SCH ×4 (07:30→22:00)
[2017-11-18] MEDS: ASPIRIN 81 MG TAB.CHEW PO SCH (08:45)
[2017-11-18] MEDS: HALOPERIDOL 5 MG TABLET PO SCH ×2 (08:46→17:00)
[2017-11-18] MEDS: LISINOPRIL 20 MG TABLET PO SCH (08:46)
[2017-11-18] MEDS: DOCUSATE SODIUM 100 MG CAPSULE PO SCH ×2 (08:46→17:00)
--- NOTE | 2017-11-18 10:56 | NUR ---
Initial Discharge Instructions: Patient currently resides at [facility] [[address] [place] [address]; ]. Spoke with Fermín at the facility who states they are willing to accept the patient back upon discharge. ISMA spoke with Public Guardian Duty Worker of the Day, Katya ([phone]) who reports that patient is no longer conserved, and her case was terminated on 10/25/17 due to no MD testimony in the case. ISMA will continue to collaborate with pt and MD regarding appropriate discharge plans for this patient. ISMA will form a safe and proper discharge plan.
--- NOTE | 2017-11-18 15:34 | NUR ---
UR Note: Provided clinicals to Xuan Salgado ([phone]). Auth#[id number]. Received call back stating patient is authorized through 11/21/17 with review due on that day. SW will continue to follow-up.
[2017-11-18] MEDS: ATORVASTATIN 20 MG TABLET PO SCH (22:00)
[2017-11-19] MEDS: hydrALAZINE HCL 10 MG TABLET PO SCH ×3 (06:00→22:00)
[2017-11-19] MEDS: BLOOD SUGAR DIAGNOSTIC 1 EACH STRIP VI SCH ×4 (07:30→21:00)
[2017-11-19] MEDS: HALOPERIDOL 5 MG TABLET PO SCH ×2 (08:20→17:00)
[2017-11-19] MEDS: DOCUSATE SODIUM 100 MG CAPSULE PO SCH ×2 (08:20→17:00)
[2017-11-19] MEDS: LISINOPRIL 20 MG TABLET PO SCH (08:20)
[2017-11-19] MEDS: ASPIRIN 81 MG TAB.CHEW PO SCH (08:20)
[2017-11-19] MEDS: ATORVASTATIN 20 MG TABLET PO SCH (21:00)
[2017-11-20] MEDS: hydrALAZINE HCL 10 MG TABLET PO SCH ×3 (06:00→21:31)
[2017-11-20] MEDS: BLOOD SUGAR DIAGNOSTIC 1 EACH STRIP VI SCH ×4 (06:07→21:00)
[2017-11-20] MEDS: DOCUSATE SODIUM 100 MG CAPSULE PO SCH ×2 (09:00→17:00)
[2017-11-20] MEDS: HALOPERIDOL 5 MG TABLET PO SCH ×2 (09:00→17:00)
[2017-11-20] MEDS: LISINOPRIL 20 MG TABLET PO SCH (09:00)
[2017-11-20] MEDS: ASPIRIN 81 MG TAB.CHEW PO SCH (09:00)
[2017-11-20] MEDS: ATORVASTATIN 20 MG TABLET PO SCH (21:00)
[2017-11-21] MEDS: hydrALAZINE HCL 10 MG TABLET PO SCH ×3 (06:00→22:00)
[2017-11-21] MEDS: BLOOD SUGAR DIAGNOSTIC 1 EACH STRIP VI SCH ×4 (07:02→20:36)
[2017-11-21] MEDS: ASPIRIN 81 MG TAB.CHEW PO SCH (09:00)
[2017-11-21] MEDS: HALOPERIDOL 5 MG TABLET PO SCH ×2 (09:00→20:36)
[2017-11-21] MEDS: DOCUSATE SODIUM 100 MG CAPSULE PO SCH ×2 (09:00→17:00)
[2017-11-21] MEDS: LISINOPRIL 20 MG TABLET PO SCH (09:00)
[2017-11-21] MEDS ORDERED: HALOPERIDOL LACTATE 5 MG/1 ML VIAL IM PRN (13:45)
--- NOTE | 2017-11-21 13:45 | NUR ---
UR Note: Provided clinicals for review to VALENTINA Salgado ([phone]). Auth#[id number]. Awaiting further authorization. SW will continue to follow-up.
[2017-11-21 18:10] LABS: *VITAMIN D 25-OH VIT D 19 ng/mL (.); *VITAMIN D 25-OH, D2 <1.0 ng/mL (.); *VITAMIN D 25-OH, D3 19 ng/mL (.)
[2017-11-21] MEDS: ATORVASTATIN 20 MG TABLET PO SCH (20:36)
[2017-11-21] MEDS: BENZTROPINE MESYLATE 0.5 MG TABLET PO SCH (20:36)
[2017-11-21] MEDS: BENZTROPINE MESYLATE 2 MG/2 ML AMPUL IM PRN (20:57)
[2017-11-22] MEDS: hydrALAZINE HCL 10 MG TABLET PO SCH ×3 (06:00→22:00)
[2017-11-22] MEDS: BLOOD SUGAR DIAGNOSTIC 1 EACH STRIP VI SCH ×4 (06:27→21:00)
[2017-11-22] MEDS ORDERED: HALOPERIDOL LACTATE 5 MG/1 ML VIAL IM PRN (08:00)
[2017-11-22] MEDS: LISINOPRIL 20 MG TABLET PO SCH (09:00)
[2017-11-22] MEDS: BENZTROPINE MESYLATE 0.5 MG TABLET PO SCH ×2 (09:00→21:00)
[2017-11-22] MEDS: DOCUSATE SODIUM 100 MG CAPSULE PO SCH ×2 (09:00→17:00)
[2017-11-22] MEDS: ASPIRIN 81 MG TAB.CHEW PO SCH (09:00)
[2017-11-22] MEDS: HALOPERIDOL 5 MG TABLET PO SCH ×2 (09:00→21:00)
--- NOTE | 2017-11-22 15:28 | NUR ---
UR Note: Placed follow-up call to [facility] SHAHEEN Salgado ([phone]) and provided daily clinicals. Auth#[id number]. Awaiting further authorization. SW will continue to follow-up. Addendum: 11/22/17 at 1559 by XIMENA OROZCO SW Received call from Medical Observer, Navid. Patient authorized 3 additional days (11/22/17-11/24/17) with review due on 11/25/17. Auth#[id number]. SW will continue to follow-up.
[2017-11-22] MEDS: ATORVASTATIN 20 MG TABLET PO SCH (21:00)
--- NOTE | 2017-11-22 22:00 | NUR ---
patient continues to refused all po medication. haldol 5mg IM given as ordered with cogentin 1mg IM,checked BP prior to IM shot, 169/84, pt continues to upset her room by turning on the light in the room while room mate is attempting to sleep.pt is very psychotic. will continue close monitoring.
[2017-11-22] MEDS ORDERED: HALOPERIDOL LACTATE 5 MG/1 ML VIAL IM ONE (23:00)
--- NOTE | 2017-11-22 23:00 | NUR ---
STAFF ABLE TO OBTAIN BP AFTER PT REFUSED AT THE BEGINNING OF THE SHIFT, BP 169/84, HR 101, PO CLONIDINE 0.1MG OFFERED, ORDERED FOR PRN SBP >160, PT DECLINED SAYING "NO NO..", YELLING OUT LOUD AND WALKED AWAY FROM STAFF MAKING HAND GESTURES IN A THREATENING MANNER TO THE STAFF.
[2017-11-22] MEDS: BENZTROPINE MESYLATE 2 MG/2 ML AMPUL IM PRN (23:07)
[2017-11-23] MEDS: hydrALAZINE HCL 10 MG TABLET PO SCH ×3 (06:00→22:00)
[2017-11-23] MEDS: BLOOD SUGAR DIAGNOSTIC 1 EACH STRIP VI SCH ×4 (07:30→21:00)
[2017-11-23] MEDS: ASPIRIN 81 MG TAB.CHEW PO SCH (09:00)
[2017-11-23] MEDS: BENZTROPINE MESYLATE 0.5 MG TABLET PO SCH ×2 (09:00→17:00)
[2017-11-23] MEDS: HALOPERIDOL 5 MG TABLET PO SCH ×2 (09:00→17:00)
[2017-11-23] MEDS: LISINOPRIL 20 MG TABLET PO SCH (09:00)
[2017-11-23] MEDS: DOCUSATE SODIUM 100 MG CAPSULE PO SCH ×2 (09:00→17:00)
[2017-11-23] MEDS ORDERED: HALOPERIDOL LACTATE 5 MG/1 ML VIAL IM ONE (10:30)
[2017-11-23] MEDS: BENZTROPINE MESYLATE 2 MG/2 ML AMPUL IM PRN (10:59)
[2017-11-23 11:10] VITALS: BP 125/54
[2017-11-23] MEDS ORDERED: HALOPERIDOL LACTATE 5 MG/1 ML VIAL IM PRN (12:15)
[2017-11-23] MEDS ORDERED: BENZTROPINE MESYLATE 2 MG/2 ML AMPUL IM PRN (12:30)
--- NOTE | 2017-11-23 13:57 | NUR ---
Firearms Report: Journalism Internship completed and submitted [employer] report on 11/23/17 for 5250 grave disability certification.
[2017-11-23 15:00] VITALS: BP 138/77
[2017-11-23 18:21] VITALS: BP 152/63
[2017-11-23] MEDS: ATORVASTATIN 20 MG TABLET PO SCH (21:00)
[2017-11-24] MEDS: hydrALAZINE HCL 10 MG TABLET PO SCH ×3 (06:00→22:52)
[2017-11-24] MEDS: BLOOD SUGAR DIAGNOSTIC 1 EACH STRIP VI SCH ×4 (07:30→21:00)
[2017-11-24] MEDS: ASPIRIN 81 MG TAB.CHEW PO SCH (08:48)
[2017-11-24] MEDS: DOCUSATE SODIUM 100 MG CAPSULE PO SCH ×2 (08:48→17:33)
[2017-11-24] MEDS: BENZTROPINE MESYLATE 0.5 MG TABLET PO SCH ×2 (08:48→17:33)
[2017-11-24] MEDS: HALOPERIDOL 5 MG TABLET PO SCH ×2 (08:48→17:33)
[2017-11-24] MEDS: LISINOPRIL 20 MG TABLET PO SCH (08:49)
--- NOTE | 2017-11-24 12:39 | NUR ---
UR Note: ISMA provided clinicals to [facility] Building Coordinator, Navid ([phone]) for concurrent review. Auth#[id number]. Awaiting further authorization. ISMA will continue to follow-up. Addendum: 11/24/17 at 1458 by XIMENA ASHBY Received return call from Navid. Patient authorized 4 additional days (11/25-11/28) with review due on 11/28. ISMA will continue to follow-up.
[2017-11-24 20:12] VITALS: BP 177/82
[2017-11-24] MEDS: CLONIDINE HCL 0.1 MG TABLET PO PRN (21:15)
[2017-11-24] MEDS: ATORVASTATIN 20 MG TABLET PO SCH (21:15)
[2017-11-25] MEDS: hydrALAZINE HCL 10 MG TABLET PO SCH ×4 (06:52→21:27)
[2017-11-25] MEDS: BLOOD SUGAR DIAGNOSTIC 1 EACH STRIP VI SCH ×4 (06:52→20:29)
[2017-11-25] MEDS: CLONIDINE HCL 0.1 MG TABLET PO PRN (06:56)
--- NOTE | 2017-11-25 06:57 | NUR ---
PT IS STILL PSYCHOTIC BUT LESS, TOOK PO MEDS BUT SELECTIVE, COMPLAINING THAT BLOOD IS BEING DRAWN ON HER BUTT, PROBABLY REFERRING TO THE INJECTIONS SHE RECEIVING DUE TO REISE.
[2017-11-25] MEDS: LISINOPRIL 20 MG TABLET PO SCH (10:00)
[2017-11-25] MEDS: DOCUSATE SODIUM 100 MG CAPSULE PO SCH ×2 (10:13→18:01)
[2017-11-25] MEDS: HALOPERIDOL 5 MG TABLET PO SCH (10:13)
[2017-11-25] MEDS: BENZTROPINE MESYLATE 0.5 MG TABLET PO SCH ×2 (10:14→18:01)
[2017-11-25] MEDS: ASPIRIN 81 MG TAB.CHEW PO SCH (10:14)
[2017-11-25 10:33] VITALS: BP 111/52
[2017-11-25] MEDS ORDERED: HALOPERIDOL 5 MG TABLET PO SCH (17:00)
[2017-11-25 17:22] VITALS: BP 110/51
--- NOTE | 2017-11-25 17:33 | NUR ---
GPS/RN - PATIENT ABLE TO COMPLY WITH EKG, DR VERAS NOTIFIED OF RESULTS, PATIENT TO RECEIVE HALDOL DECANOATE TOMORROW NEED BASELINE QT PROLONGATION BASELINE.
[2017-11-25] MEDS: ATORVASTATIN 20 MG TABLET PO SCH (20:29)
--- NOTE | 2017-11-25 20:50 | NUR ---
Pt refused HS accu check and Lipitor. Agitated and angry, Pt screamed at staff to get out of her room.
[2017-11-25 21:04] VITALS: BP 125/50
[2017-11-26] MEDS: hydrALAZINE HCL 10 MG TABLET PO SCH ×3 (06:00→20:31)
[2017-11-26] MEDS: BLOOD SUGAR DIAGNOSTIC 1 EACH STRIP VI SCH ×4 (06:35→20:31)
--- NOTE | 2017-11-26 06:45 | NUR ---
REFUSED 0600 VS/HYDRALAZINE, REFUSED AM ACCU CHECKS. REMAINS PARANOID AND EASILY AGITATED.
[2017-11-26 07:30] VITALS: BP 96/68
[2017-11-26] MEDS: ASPIRIN 81 MG TAB.CHEW PO SCH (08:21)
[2017-11-26] MEDS: BENZTROPINE MESYLATE 0.5 MG TABLET PO SCH ×2 (08:21→17:28)
[2017-11-26] MEDS: HALOPERIDOL 5 MG TABLET PO SCH ×2 (08:21→17:28)
[2017-11-26] MEDS: DOCUSATE SODIUM 100 MG CAPSULE PO SCH ×2 (09:00→17:00)
[2017-11-26] MEDS: LISINOPRIL 20 MG TABLET PO SCH (09:00)
[2017-11-26 15:34] VITALS: BP 136/41
[2017-11-26 20:22] VITALS: BP 144/79
[2017-11-26] MEDS: ATORVASTATIN 20 MG TABLET PO SCH (20:30)
[2017-11-27 07:30] VITALS: BP 152/52
[2017-11-27] MEDS: BLOOD SUGAR DIAGNOSTIC 1 EACH STRIP VI SCH ×4 (07:30→20:34)
[2017-11-27] MEDS: HALOPERIDOL 5 MG TABLET PO SCH ×2 (08:36→18:00)
[2017-11-27] MEDS: ASPIRIN 81 MG TAB.CHEW PO SCH (08:37)
[2017-11-27] MEDS: DOCUSATE SODIUM 100 MG CAPSULE PO SCH ×2 (08:37→17:59)
[2017-11-27] MEDS: LISINOPRIL 20 MG TABLET PO SCH (08:37)
[2017-11-27] MEDS: BENZTROPINE MESYLATE 0.5 MG TABLET PO SCH ×2 (11:01→17:59)
[2017-11-27] MEDS: hydrALAZINE HCL 10 MG TABLET PO SCH ×2 (14:00→21:03)
[2017-11-27 15:55] VITALS: BP 134/62
[2017-11-27 20:15] VITALS: BP 124/50
[2017-11-27] MEDS: ATORVASTATIN 20 MG TABLET PO SCH (20:35)
[2017-11-28] MEDS: hydrALAZINE HCL 10 MG TABLET PO SCH ×3 (06:51→21:16)
[2017-11-28] MEDS: BLOOD SUGAR DIAGNOSTIC 1 EACH STRIP VI SCH ×4 (06:52→20:47)
[2017-11-28 07:30] VITALS: BP 131/55
[2017-11-28] MEDS: ASPIRIN 81 MG TAB.CHEW PO SCH (08:19)
[2017-11-28] MEDS: HALOPERIDOL 5 MG TABLET PO SCH ×2 (08:19→16:57)
[2017-11-28] MEDS: LISINOPRIL 20 MG TABLET PO SCH (08:20)
[2017-11-28] MEDS: DOCUSATE SODIUM 100 MG CAPSULE PO SCH ×2 (08:20→16:57)
[2017-11-28] MEDS: BENZTROPINE MESYLATE 0.5 MG TABLET PO SCH ×2 (08:20→16:57)
--- NOTE | 2017-11-28 12:37 | NUR ---
UR Note: ISMA provided clinicals to [facility] Potato Peeler, Navid ([phone]) for concurrent review. Auth#[id number]. Awaiting further authorization. ISMA will continue to follow-up Addendum: 11/29/17 at 0935 by JUAN RAMON BALLARD Received call back from Potato PeelerNavid. Patient authorized 1 additional day (11/29) with review due on 11/29/17. ISMA will continue to follow-up.
[2017-11-28 15:48] VITALS: BP 123/50
[2017-11-28 19:30] VITALS: BP 125/45
[2017-11-28] MEDS: ATORVASTATIN 20 MG TABLET PO SCH (20:48)
[2017-11-29] MEDS: hydrALAZINE HCL 10 MG TABLET PO SCH ×3 (06:09→21:56)
[2017-11-29] MEDS: BLOOD SUGAR DIAGNOSTIC 1 EACH STRIP VI SCH (06:32)
[2017-11-29 07:30] VITALS: BP 120/56
[2017-11-29] MEDS: BENZTROPINE MESYLATE 0.5 MG TABLET PO SCH ×2 (10:18→17:33)
[2017-11-29] MEDS: DOCUSATE SODIUM 100 MG CAPSULE PO SCH ×2 (10:18→17:35)
[2017-11-29] MEDS: ASPIRIN 81 MG TAB.CHEW PO SCH (10:18)
[2017-11-29] MEDS: LISINOPRIL 20 MG TABLET PO SCH (10:19)
[2017-11-29] MEDS: HALOPERIDOL 5 MG TABLET PO SCH ×2 (10:19→17:33)
[2017-11-29 19:30] VITALS: BP 132/52
[2017-11-29] MEDS: ATORVASTATIN 20 MG TABLET PO SCH (20:11)
[2017-11-30] MEDS: hydrALAZINE HCL 10 MG TABLET PO SCH ×2 (05:32→13:20)
[2017-11-30 07:30] VITALS: BP 141/58
[2017-11-30] MEDS: BENZTROPINE MESYLATE 0.5 MG TABLET PO SCH (08:36)
[2017-11-30] MEDS: DOCUSATE SODIUM 100 MG CAPSULE PO SCH (08:36)
[2017-11-30] MEDS: HALOPERIDOL 5 MG TABLET PO SCH (08:36)
[2017-11-30] MEDS: ASPIRIN 81 MG TAB.CHEW PO SCH (08:36)
[2017-11-30] MEDS: LISINOPRIL 20 MG TABLET PO SCH (08:37)
--- NOTE | 2017-11-30 11:13 | NUR ---
Discharge Note: Patient will be discharged back to [facility] [[address] [place] [place] [address]; ] via ambulance. Please arrange an ambulance for this patient. Spoke with the biztalk consultant, Jett who states they are ready to accept this patient today. Patient does not have any contact numbers at this time. Patient is alert and oriented x2 and is cooperative. Patient will follow-up at the facility with Dr. Henriquez (Esthetician Facialist) and Dr. Ceron (Psychiatrist).
[2017-11-30 13:13] VITALS: BP 129/54
[2017-11-30 13:20] VITALS: BP 129/54
--- NOTE | 2017-11-30 15:30 | NUR ---
GPS/RN- Discharge note Patient oriented to self place and partial time, compliant with meds, anxious and paranoid redirectable no combative behavior no hallucinations noted, unable to provide discharge instructions, anxious, reinforced to Nurse JEANCARLOS Hernandez at her facility. Patient will be discharged back to [facility] [[address] [place] [address]; ] via ambulance.. Patient will follow-up at the facility with Dr. Henriquez (Mold Setter) and Dr. Ceron (Psychiatrist). belongings returned. stable condition.
--- NOTE | 2017-11-30 16:15 | NUR ---
UR Note: ISMA provided discharge clinicals to [facility] Merchandise Stocker, Navid ([phone]). Auth#[id number] SW will continue to follow-up if needed.
== END 2017-11-30 16:00 | DRG 885 ==
LOC: ER 12:23 → GPS 15:30
PROVIDERS: ADMIT Psychiatry & Neurology Psychosomatic Medicine; ATTEND Nurse Practitioner Acute Care
DX: F25.0 Schizoaffective disorder, bipolar type (principal); N18.9 Chronic kidney disease, unspecified; E78.5 Hyperlipidemia, unspecified; E86.0 Dehydration; E10.22 Type 1 diabetes mellitus with diabetic chronic kidney disease; I13.10 Hypertensive heart and chronic kidney disease without heart failure, with stage 1 through stage 4 chronic kidney disease, or unspecified chronic kidney disease; G47.00 Insomnia, unspecified; K21.9 Gastro-esophageal reflux disease without esophagitis; F03.90 Unspecified dementia, unspecified severity, without behavioral disturbance, psychotic disturbance, mood disturbance, and anxiety; R79.89 Other specified abnormal findings of blood chemistry; Z86.73 Personal history of transient ischemic attack (TIA), and cerebral infarction without residual deficits; Z87.01 Personal history of pneumonia (recurrent); Z79.82 Long term (current) use of aspirin; Z79.4 Long term (current) use of insulin; Z79.899 Other long term (current) drug therapy; Z91.14 Patient's other noncompliance with medication regimen; E78.00 Pure hypercholesterolemia, unspecified
CPT/HCPCS: 36415; 80307; 83735; 84443; 85025; 93005; A4663; G0480; G0480-TC; J0515; J1630; J1815

== ENCOUNTER 2018-09-07 19:47 | Inpatient (IN) | payer MEDICARE, MEDICAID ==
[~2018-09-07] VITALS: Ht 152.4 cm; Wt 39.5 kg
[~2018-09-07 19:47] MED LIST changes: -APRESOLINE PO; +CLON1PAT TD; +DOCU100C36 PO; +HYDR-4075 PO; +HYDR25TA86 GT
[2018-09-07] MEDS ORDERED: HALO2ORA PO (20:10)
[2018-09-07] MEDS ORDERED: ATORVASTATIN 10 MG TABLET (20:10)
[2018-09-07] MEDS ORDERED: BENZTROPINE MES 1 MG TABLET (20:10)
--- NOTE | 2018-09-07 20:15 | NUR ---
Pt is here for medical clearence, on 5150 hold. Pt is Jamaican Speaking, a/o x3, skin w/d/i w/ assessment unremarkable. Pt denies any pain or discomfort at this time, medicated per MDO. Vs 98.0, 83, 20, 98% on ra, 157/84
[2018-09-07 20:23] LABS: BASOPHILS # (AUTO) 0.1 K/uL (0.0-8.0); BASOPHILS % (AUTO) 1.3 % (0.0-2.0); EOSINOPHILS # (AUTO) 0.2 K/uL (0.0-0.7); EOSINOPHILS % (AUTO) 2.3 % (0.0-7.0); HEMATOCRIT 34.9 % (31.2-41.9); HEMOGLOBIN 11.4 g/dL (10.9-14.3); LYMPHOCYTES # (AUTO) 3.2 K/uL (20.0-40.0); MEAN CORPUSCULAR HEMOGLOBIN 29.2 uug (24.7-32.8); MEAN CORPUSCULAR HGB CONC 33 g/dL (32.3-35.6); MEAN CORPUSCULAR VOLUME 89.6 fL (75.5-95.3); MONOCYTES # (AUTO) 0.4 K/uL (2.0-10.0); MONOCYTES % (AUTO) 5.2 % (0.0-11.0); NEUTROPHILS # (AUTO) 3.6 K/uL (1.8-8.9); NEUTROPHILS % (AUTO) 48.2 % (38.5-71.5); PLATELET COUNT (AUTO) 200 K/uL (179-408); WHITE BLOOD COUNT (AUTO) 7.4 K/uL (3.8-11.8)
[2018-09-07] MEDS ORDERED: OLANZAPINE 5 MG TABLET ONE (20:26)
[2018-09-07 20:28] LABS: CARBON DIOXIDE 30 mmol/L (21-32); CHLORIDE 107 mmol/L (98-107); CREATININE 1.5 mg/dL (0.6-1.3); GLUCOSE 183 mg/dL (74-106); POTASSIUM 4.8 mmol/L (3.5-5.1); UREA NITROGEN, BLOOD 34 mg/dL (7-18)
[2018-09-07 20:34] LABS: ALANINE AMINOTRANSFERASE 15 U/L (14-59); ALKALINE PHOSPHATASE 86 U/L (50-136); ASPARTATE AMINOTRANSFERASE 16 U/L (15-37); BILIRUBIN,DIRECT 0.1 mg/dL (0.0-0.2); BILIRUBIN,TOTAL 0.2 mg/dL (0.2-1.0); TOTAL PROTEIN, SERUM 7.5 g/dL (6.4-8.2)
[2018-09-07 20:35] LABS: ACETAMINOPHEN < 2.0 ug/mL (10-30); ETHANOL < 3 MG/DL (0-0)
[2018-09-07] MEDS ORDERED: OLANZAPINE ZYDIS 5 MG TAB.RAPDIS PO SCH (21:00)
--- NOTE | 2018-09-07 21:32 | NUR ---
MRSA swab done and sent to lab, report given to saba Dinh and appears in good spirits at this time, prepared to go to rm 138B
--- NOTE | 2018-09-07 21:42 | NUR ---
Pt. admitted to GPS, under care of Dr. Oneal Belongs List completed,
[2018-09-07] MEDS ORDERED: MAGNESIUM HYDROXIDE 30 ML LIQUID UDC PO PRN (22:00)
[2018-09-07] MEDS ORDERED: MAG HYDROX/AL HYDROX/SIMETH 30 ML LIQUID UDC PO PRN (22:00)
[2018-09-07] MEDS ORDERED: QUETIAPINE FUMARATE 25 MG TABLET PO PRN (22:00)
[2018-09-07] MEDS ORDERED: ACETAMINOPHEN 325 MG TABLET PO PRN (22:00)
[2018-09-07 22:03] VITALS: BP 192/93
[2018-09-07] MEDS ORDERED: BISACODYL 10 MG SUPP.RECT RC PRN (22:15)
[2018-09-07] MEDS ORDERED: DEXTROSE 50% 50 ML DISP.SYRIN IV PRN (22:15)
[2018-09-07] MEDS: AMLODIPINE 5 MG TABLET PO SCH (22:15)
[2018-09-07] MEDS ORDERED: CLONIDINE HCL 0.1 MG TABLET PO PRN (22:15)
[2018-09-07] MEDS: METOPROLOL TARTRATE 25 MG TABLET PO SCH (22:15)
--- NOTE | 2018-09-07 22:33 | NUR ---
received to care, at 2130, on a 72 hour hold for gravely disabled, from the emergency room, a transfer from [facility]. according to the hold, she had been agitated, manic and angry, refusing meds and care, and verbally aggressive. upon arrival, she appeared confused, macedonian speaking only. unable to sign papers, answer interview, or provide any information to staff. b/p 192/93. Dr Laguerre was notified. new orders received. will continue to monitor closely.
[2018-09-07] MEDS: ZOLPIDEM 5 MG TABLET PO PRN (22:49)
--- NOTE | 2018-09-07 23:00 | NUR ---
refused all medications. remains verbally agitated. also continues to refuse to take a shower, even though she appears disheveled, and has a body odor. currently sitting at nurses station, appearing distracted by internal stimuli.
[2018-09-08 03:56] VITALS: BP 158/58
--- NOTE | 2018-09-08 04:01 | NUR ---
has been awake, and at nurses station, for a while. slept 2s, total. continues to talk to self. b/p is now 158/58, hr 91. will continue to monitor closely.
--- NOTE | 2018-09-08 06:30 | NUR ---
refused am accucheck. remains labile.
[2018-09-08] MEDS: BLOOD SUGAR DIAGNOSTIC 1 EACH STRIP VI SCH ×4 (07:30→21:00)
[2018-09-08] MEDS: DOCUSATE SODIUM 100 MG CAPSULE PO SCH ×2 (09:00→17:00)
[2018-09-08] MEDS: METOPROLOL TARTRATE 25 MG TABLET PO SCH ×2 (09:00→21:00)
[2018-09-08] MEDS: AMLODIPINE 5 MG TABLET PO SCH ×2 (09:00→21:00)
--- NOTE | 2018-09-08 12:21 | NUR ---
Initial Discharge Instructions: Patient currently resides at [facility] [[address] [facility] [place] [address]; [place] Spoke with Mary WANG) at the facility who states they are willing to accept the patient back upon discharge. Pt is a long-term pt at facility, pt has no family or friends for contact, facility states they are involved in pts care.
--- NOTE | 2018-09-08 13:00 | NUR ---
Gps/Cup Trimming Machine Operator- Continue to refused, blood sugar accu-checks, refusing medications, labile mood, yells and gets agitated when being encouraged to take meds. and to initiated simple tasks. Napping this pm. refused to eat lunch.
[2018-09-08] MEDS: ATORVASTATIN 10 MG TABLET PO SCH (21:00)
--- NOTE | 2018-09-08 22:00 | NUR ---
received to care, ambulating around unit, isolative, talking to self, distracted by internal stimuli, labile. continues to refuse all care, medications, blood sugar and blood pressure check, etc. becomes verbally hostile, and yells when engaged. seen by dr benson, but she refused to take any medications. as of 2199, she is lying in bed, talking to self. no distress noted. will continue to monitor closely.
[2018-09-08] MEDS: DIVALPROEX SPRINKLE 125 MG CAP.SPRINK PO SCH (23:00)
[2018-09-08] MEDS: risperiDONE-M 0.5 MG TAB.RAPDIS PO SCH (23:00)
--- NOTE | 2018-09-09 06:00 | NUR ---
slept only 30 minutes last night, but has been quiet and calm, the whole night. observed to be sitting in her bed, with legs dangling, talking to self. continues to refuse accu check, and all treatments. no distress noted.
[2018-09-09] MEDS: BLOOD SUGAR DIAGNOSTIC 1 EACH STRIP VI SCH ×4 (06:57→21:00)
[2018-09-09] MEDS: METOPROLOL TARTRATE 25 MG TABLET PO SCH ×2 (09:00→21:00)
[2018-09-09] MEDS: DOCUSATE SODIUM 100 MG CAPSULE PO SCH ×2 (09:00→16:48)
[2018-09-09] MEDS: DIVALPROEX SPRINKLE 125 MG CAP.SPRINK PO SCH ×3 (09:00→23:32)
[2018-09-09] MEDS: risperiDONE-M 0.5 MG TAB.RAPDIS PO SCH ×2 (09:00→23:32)
[2018-09-09] MEDS: AMLODIPINE 5 MG TABLET PO SCH ×2 (09:00→21:00)
--- NOTE | 2018-09-09 18:14 | NUR ---
GPS: Nursing Notes: Noncompliance with Medication: Patient is awake and responding to internal stimuli by covering her head with a blanket and mumbling to self, paranoid behavior, refusing her medications, believes that staff is trying to poison her with pills, redirected and reoriented to reality, but continue to be resistant to nursing care, refusing V/S, refusing Accu-checks, gets easily irritable when redirected, unable to formulate a viable plan for self care, continue with treatment plan.
[2018-09-09] MEDS: ATORVASTATIN 10 MG TABLET PO SCH (21:00)
[2018-09-10] MEDS: ZOLPIDEM 5 MG TABLET PO PRN (01:16)
[2018-09-10] MEDS: BLOOD SUGAR DIAGNOSTIC 1 EACH STRIP VI SCH ×4 (07:30→21:00)
[2018-09-10] MEDS: DOCUSATE SODIUM 100 MG CAPSULE PO SCH ×2 (09:00→16:26)
[2018-09-10] MEDS: DIVALPROEX SPRINKLE 125 MG CAP.SPRINK PO SCH ×3 (09:00→21:00)
[2018-09-10] MEDS: risperiDONE-M 0.5 MG TAB.RAPDIS PO SCH ×2 (09:00→21:00)
[2018-09-10] MEDS: AMLODIPINE 5 MG TABLET PO SCH ×2 (09:00→21:00)
[2018-09-10] MEDS: METOPROLOL TARTRATE 25 MG TABLET PO SCH ×2 (09:00→21:00)
--- NOTE | 2018-09-10 14:14 | NUR ---
GPS: Nursing Notes: Noncompliance with Medication: Patient is awake and responding to her name, paranoid behavior, responding to internal stimuli by shouting to unseen other with her head cover with a blanket, reoriented and redirected during shift, gets easily irritable when redirected, poor anger management, refusing her medications, explained the pros and cons of her psych. medications, but believes that staff is trying to poison her with pills, education material regarding her psych. medications printed out in Turkmen and giving to the patient, but refused to read them, stated, "Get..Out..", unable to formulate a viable plan for self care, continue with treatment plan.
[2018-09-10] MEDS: ATORVASTATIN 10 MG TABLET PO SCH (21:00)
--- NOTE | 2018-09-10 21:43 | NUR ---
RECEIVED PATIENT IN HER ROOM WHO APPEARS TO BE RESPONDING TO INTERNAL STIMULI BY MUMBLING TO HERSELF.REFUSES ALL MEDS AND IS IRRITABLE WHEN THE MEDS ARE OFFERED.SHE ALSO REFUSES EVEN THE ACCU CHECK.WILL CONTINUE TO MONITOR AND FOLLOW PLAN OF CARE.
[2018-09-11] MEDS: BLOOD SUGAR DIAGNOSTIC 1 EACH STRIP VI SCH ×4 (06:31→20:13)
[2018-09-11] MEDS: DOCUSATE SODIUM 100 MG CAPSULE PO SCH ×2 (08:36→16:30)
[2018-09-11] MEDS: METOPROLOL TARTRATE 25 MG TABLET PO SCH ×2 (08:37→20:13)
[2018-09-11] MEDS: DIVALPROEX SPRINKLE 125 MG CAP.SPRINK PO SCH ×3 (08:37→20:12)
[2018-09-11] MEDS: AMLODIPINE 5 MG TABLET PO SCH ×2 (08:38→20:13)
[2018-09-11] MEDS: risperiDONE-M 0.5 MG TAB.RAPDIS PO SCH ×2 (08:39→20:13)
--- NOTE | 2018-09-11 15:13 | NUR ---
GPS: Nursing Notes: Noncompliance with Medication: Patient is awake and responding to her name, isolative in her room, gets easily irritable when redirected, poor anger management, refusing her medications, believes that staff is trying to poison her, episodes of shouting about her in her room, responding to internal stimuli by talking and mumbling to self with a blanket over her head, redirected and reoriented during shift, but continue to be refusing her medications, refusing V/S, refusing to shower, poor impulse control, unable to formulate a viable plan for self care, continue with treatment plan.
[2018-09-11] MEDS: ATORVASTATIN 10 MG TABLET PO SCH (20:13)
--- NOTE | 2018-09-12 06:12 | NUR ---
Pt continues to refuse all care, medications, VS, accu check, and shower. Pt awake intermittently throughout the shift, and loudly responding to internal stimuli in her room, required redirection several times.
[2018-09-12] MEDS: BLOOD SUGAR DIAGNOSTIC 1 EACH STRIP VI SCH ×4 (06:35→20:11)
[2018-09-12] MEDS: DOCUSATE SODIUM 100 MG CAPSULE PO SCH ×2 (08:49→16:42)
[2018-09-12] MEDS: DIVALPROEX SPRINKLE 125 MG CAP.SPRINK PO SCH ×3 (08:49→20:10)
[2018-09-12] MEDS: risperiDONE-M 0.5 MG TAB.RAPDIS PO SCH ×2 (08:50→20:11)
[2018-09-12] MEDS: AMLODIPINE 5 MG TABLET PO SCH ×2 (08:50→20:11)
[2018-09-12] MEDS: METOPROLOL TARTRATE 25 MG TABLET PO SCH ×2 (08:50→20:11)
--- NOTE | 2018-09-12 14:26 | NUR ---
Dr. Oneal notified [facility] tomorrow at 1 pm.
[2018-09-12] MEDS: ATORVASTATIN 10 MG TABLET PO SCH (20:11)
--- NOTE | 2018-09-13 00:32 | NUR ---
GPS: Pt.still awake at this time,sitting by the edge of her bed. Continues to refuse meds. when offered. Easily irritable when approached. Refuses re-direction from staff. Safety emphasized. Will continue to monitor.
[2018-09-13] MEDS: BLOOD SUGAR DIAGNOSTIC 1 EACH STRIP VI SCH ×4 (06:34→20:51)
[2018-09-13] MEDS: METOPROLOL TARTRATE 25 MG TABLET PO SCH ×2 (09:00→20:50)
[2018-09-13] MEDS: AMLODIPINE 5 MG TABLET PO SCH ×2 (09:00→20:50)
[2018-09-13] MEDS: DOCUSATE SODIUM 100 MG CAPSULE PO SCH ×2 (09:00→17:00)
[2018-09-13] MEDS: risperiDONE-M 0.5 MG TAB.RAPDIS PO SCH ×2 (09:00→20:51)
[2018-09-13] MEDS: DIVALPROEX SPRINKLE 125 MG CAP.SPRINK PO SCH ×3 (09:00→20:50)
--- NOTE | 2018-09-13 09:28 | NUR ---
Patient continue to refused her medications, vital signs taking and care( shower)
[2018-09-13] MEDS: OLANZAPINE 10 MG VIAL IM PRN ×2 (14:10→21:20)
[2018-09-13] MEDS: ATORVASTATIN 10 MG TABLET PO SCH (20:50)
--- NOTE | 2018-09-13 21:28 | NUR ---
Patient refused all PO medications as well as blood sugar check. Patient would not allow VS to be taken or shower to be given. IM injection given per order without difficulty. Continuing to monitor patient for safety.
[2018-09-14] MEDS: BLOOD SUGAR DIAGNOSTIC 1 EACH STRIP VI SCH ×4 (06:15→20:49)
[2018-09-14] MEDS: risperiDONE-M 0.5 MG TAB.RAPDIS PO SCH ×3 (09:00→20:48)
[2018-09-14] MEDS: METOPROLOL TARTRATE 25 MG TABLET PO SCH ×2 (09:00→20:48)
[2018-09-14] MEDS: DIVALPROEX SPRINKLE 125 MG CAP.SPRINK PO SCH ×3 (09:00→20:48)
[2018-09-14] MEDS: DOCUSATE SODIUM 100 MG CAPSULE PO SCH ×2 (09:00→17:00)
[2018-09-14] MEDS: AMLODIPINE 5 MG TABLET PO SCH ×2 (09:00→20:48)
[2018-09-14] MEDS: OLANZAPINE 10 MG VIAL IM PRN ×2 (14:17→20:49)
[2018-09-14] MEDS: ATORVASTATIN 10 MG TABLET PO SCH (20:48)
--- NOTE | 2018-09-14 21:45 | NUR ---
Patient continues to refuse PO medications, VS, Blood sugar checks and shower. IM given per order. Patient tolerated it well.
[2018-09-15] MEDS: BLOOD SUGAR DIAGNOSTIC 1 EACH STRIP VI SCH ×4 (06:26→21:00)
[2018-09-15] MEDS: METOPROLOL TARTRATE 25 MG TABLET PO SCH ×2 (09:00→21:00)
[2018-09-15] MEDS: DIVALPROEX SPRINKLE 125 MG CAP.SPRINK PO SCH ×3 (09:00→21:00)
[2018-09-15] MEDS: risperiDONE-M 0.5 MG TAB.RAPDIS PO SCH ×3 (09:00→21:00)
[2018-09-15] MEDS: DOCUSATE SODIUM 100 MG CAPSULE PO SCH ×2 (09:00→17:00)
[2018-09-15] MEDS: AMLODIPINE 5 MG TABLET PO SCH ×2 (09:00→21:00)
[2018-09-15] MEDS: OLANZAPINE 10 MG VIAL IM PRN ×3 (09:52→21:31)
--- NOTE | 2018-09-15 18:05 | NUR ---
PT NOTED TO NOT HAVE SHOWERED SINCE HOSPITALIZATION (8 DAYS) IN [facility]. PT IS EXTREMELY MALODOROUS, DISHEVELED, SKIN CHECKS OFTEN REFUSED. AT RISK FOR IMPAIRED SKIN INTEGRITY. PT QUITE UNKEMPT, RESPONDING TO INTERNAL STIMULI. REFUSING ALL PO MEDICATIONS. CONSULTED WITH PT'S PSYCHIATRIST DR. BLOOM, AND AGREED TO ORDER DENIAL OF RIGHTS FOR PT, DENYING RIGHT FOR PT TO REFUSE SHOWER AND CARE. CONSULTED ALSO WITH DR. POOLE, PSYCHIATRY DIRECTOR, WHO WAS ALSO AGREEABLE WITH DENIAL OF RIGHTS AND PT'S PSYCHIATRIST.
[2018-09-15] MEDS: ATORVASTATIN 10 MG TABLET PO SCH (21:00)
[2018-09-15 22:07] VITALS: BP 132/90
[2018-09-16] MEDS: BLOOD SUGAR DIAGNOSTIC 1 EACH STRIP VI SCH ×5 (06:34→20:43)
--- NOTE | 2018-09-16 07:14 | NUR ---
GPS/NSG Disregard previous denial of rights. Patient showered willingly. Will continue to monitor as well as continue to use nursing interventions to provide patient with a safe and therapeutic environment.
[2018-09-16] MEDS: METOPROLOL TARTRATE 25 MG TABLET PO SCH ×2 (09:00→20:12)
[2018-09-16] MEDS: AMLODIPINE 5 MG TABLET PO SCH ×2 (09:00→20:12)
[2018-09-16] MEDS: DIVALPROEX SPRINKLE 125 MG CAP.SPRINK PO SCH ×3 (10:53→20:11)
[2018-09-16] MEDS: risperiDONE-M 0.5 MG TAB.RAPDIS PO SCH ×3 (10:53→20:42)
[2018-09-16] MEDS: DOCUSATE SODIUM 100 MG CAPSULE PO SCH ×2 (10:57→17:00)
[2018-09-16] MEDS: OLANZAPINE 10 MG VIAL IM PRN ×2 (14:04→21:00)
[2018-09-16] MEDS: ATORVASTATIN 10 MG TABLET PO SCH (20:12)
--- NOTE | 2018-09-16 21:15 | NUR ---
Pt refused PO Risperdal 1.5mg stating, "it makes me sick." Pt requested the IM. Zyprexa 5mg IM administered per Riese order. Administered to (L) deltoid with good effect. Pt resting comfortably in bed, breathing even and unlabored. Will continue to monitor.
--- NOTE | 2018-09-16 21:30 | NUR ---
Pt refused all HS PO meds. Education provided regarding risks and benefits.
[2018-09-17] MEDS: BLOOD SUGAR DIAGNOSTIC 1 EACH STRIP VI SCH ×4 (06:50→20:10)
[2018-09-17] MEDS: AMLODIPINE 5 MG TABLET PO SCH ×3 (08:48→20:10)
[2018-09-17] MEDS: METOPROLOL TARTRATE 25 MG TABLET PO SCH ×3 (08:48→20:10)
[2018-09-17] MEDS: DOCUSATE SODIUM 100 MG CAPSULE PO SCH ×3 (08:48→15:59)
[2018-09-17] MEDS: DIVALPROEX SPRINKLE 125 MG CAP.SPRINK PO SCH ×5 (08:48→20:09)
[2018-09-17] MEDS: risperiDONE-M 0.5 MG TAB.RAPDIS PO SCH ×4 (08:49→20:06)
[2018-09-17] MEDS: ATORVASTATIN 10 MG TABLET PO SCH (20:10)
[2018-09-17 21:37] VITALS: BP 154/51
[2018-09-18] MEDS: BLOOD SUGAR DIAGNOSTIC 1 EACH STRIP VI SCH ×4 (06:41→20:38)
[2018-09-18] MEDS: DOCUSATE SODIUM 100 MG CAPSULE PO SCH ×2 (08:53→16:09)
[2018-09-18] MEDS: DIVALPROEX SPRINKLE 125 MG CAP.SPRINK PO SCH ×3 (08:53→20:37)
[2018-09-18] MEDS: risperiDONE-M 0.5 MG TAB.RAPDIS PO SCH ×2 (08:54→13:18)
[2018-09-18] MEDS: AMLODIPINE 5 MG TABLET PO SCH ×2 (08:54→20:38)
[2018-09-18] MEDS: METOPROLOL TARTRATE 25 MG TABLET PO SCH ×2 (08:54→20:37)
[2018-09-18] MEDS: OLANZAPINE 10 MG VIAL IM PRN ×2 (09:05→13:21)
--- NOTE | 2018-09-18 09:57 | NUR ---
Firearms Report: office worker completed and submitted a [employer] firearms report for a 5250 GD certification.
[2018-09-18] MEDS ORDERED: OLANZAPINE 10 MG VIAL IM PRN (17:45)
[2018-09-18] MEDS: ATORVASTATIN 10 MG TABLET PO SCH (20:37)
[2018-09-18 20:44] VITALS: BP 145/76
[2018-09-18] MEDS ORDERED: risperiDONE-M 0.5 MG TAB.RAPDIS PO SCH (21:00)
[2018-09-19] MEDS: BLOOD SUGAR DIAGNOSTIC 1 EACH STRIP VI SCH ×4 (06:33→20:34)
[2018-09-19] MEDS: METOPROLOL TARTRATE 25 MG TABLET PO SCH ×2 (08:13→20:43)
[2018-09-19] MEDS: AMLODIPINE 5 MG TABLET PO SCH ×2 (08:13→20:43)
[2018-09-19] MEDS: DOCUSATE SODIUM 100 MG CAPSULE PO SCH ×2 (08:13→16:44)
[2018-09-19] MEDS: DIVALPROEX SPRINKLE 125 MG CAP.SPRINK PO SCH ×3 (08:13→20:43)
[2018-09-19] MEDS: risperiDONE-M 0.5 MG TAB.RAPDIS PO SCH ×3 (08:14→20:34)
[2018-09-19] MEDS: OLANZAPINE 10 MG VIAL IM PRN ×2 (08:20→15:17)
[2018-09-19] MEDS ORDERED: OLANZAPINE 10 MG VIAL IM PRN ×2 (17:45→19:15)
[2018-09-19] MEDS: ATORVASTATIN 10 MG TABLET PO SCH (20:43)
[2018-09-20] MEDS: BLOOD SUGAR DIAGNOSTIC 1 EACH STRIP VI SCH ×4 (07:30→21:00)
[2018-09-20] MEDS: DOCUSATE SODIUM 100 MG CAPSULE PO SCH ×2 (08:44→16:57)
[2018-09-20] MEDS: DIVALPROEX SPRINKLE 125 MG CAP.SPRINK PO SCH ×3 (08:44→21:16)
[2018-09-20] MEDS: METOPROLOL TARTRATE 25 MG TABLET PO SCH ×2 (08:45→21:00)
[2018-09-20] MEDS: risperiDONE-M 0.5 MG TAB.RAPDIS PO SCH ×3 (08:45→21:16)
[2018-09-20] MEDS: AMLODIPINE 5 MG TABLET PO SCH ×2 (08:45→21:00)
[2018-09-20] MEDS: OLANZAPINE 10 MG VIAL IM PRN ×2 (08:52→15:26)
[2018-09-20] MEDS ORDERED: INVEGA SUSTENNA IM ONE (11:30)
[2018-09-20] MEDS: ATORVASTATIN 10 MG TABLET PO SCH (21:00)
[2018-09-21] MEDS: BLOOD SUGAR DIAGNOSTIC 1 EACH STRIP VI SCH ×4 (06:44→20:47)
[2018-09-21] MEDS: risperiDONE-M 0.5 MG TAB.RAPDIS PO SCH ×3 (08:29→20:41)
[2018-09-21] MEDS: DIVALPROEX SPRINKLE 125 MG CAP.SPRINK PO SCH ×3 (08:30→20:41)
[2018-09-21] MEDS: AMLODIPINE 5 MG TABLET PO SCH ×2 (08:35→20:42)
[2018-09-21] MEDS: METOPROLOL TARTRATE 25 MG TABLET PO SCH ×2 (08:35→20:42)
[2018-09-21] MEDS: DOCUSATE SODIUM 100 MG CAPSULE PO SCH ×2 (08:36→17:17)
[2018-09-21 16:00] VITALS: BP 131/51
[2018-09-21] MEDS: ATORVASTATIN 10 MG TABLET PO SCH (20:41)
[2018-09-22] MEDS: BLOOD SUGAR DIAGNOSTIC 1 EACH STRIP VI SCH ×4 (06:36→20:32)
[2018-09-22] MEDS: DIVALPROEX SPRINKLE 125 MG CAP.SPRINK PO SCH ×3 (08:49→20:31)
[2018-09-22] MEDS: risperiDONE-M 0.5 MG TAB.RAPDIS PO SCH ×3 (08:49→20:32)
[2018-09-22] MEDS: METOPROLOL TARTRATE 25 MG TABLET PO SCH ×2 (08:55→20:32)
[2018-09-22] MEDS: AMLODIPINE 5 MG TABLET PO SCH ×2 (08:56→20:32)
[2018-09-22] MEDS: DOCUSATE SODIUM 100 MG CAPSULE PO SCH ×2 (10:03→17:00)
[2018-09-22] MEDS: ATORVASTATIN 10 MG TABLET PO SCH (20:32)
[2018-09-22 20:42] VITALS: BP 150/54
--- NOTE | 2018-09-23 06:20 | NUR ---
GPS: Remain uncooperative with adl's and shower, blood sugar check, po medications. Pt awake intermittently throughout the shift, and loudly responding to internal stimuli in her room, required redirection several times. slept 9 hrs through the night. refused blood sugar check this morning.
[2018-09-23] MEDS: BLOOD SUGAR DIAGNOSTIC 1 EACH STRIP VI SCH ×4 (06:28→20:18)
[2018-09-23 07:30] VITALS: BP 190/74
[2018-09-23] MEDS: METOPROLOL TARTRATE 25 MG TABLET PO SCH ×2 (08:56→20:23)
[2018-09-23] MEDS: DIVALPROEX SPRINKLE 125 MG CAP.SPRINK PO SCH ×3 (08:57→20:19)
[2018-09-23] MEDS: DOCUSATE SODIUM 100 MG CAPSULE PO SCH ×2 (08:57→16:13)
[2018-09-23] MEDS: AMLODIPINE 5 MG TABLET PO SCH ×2 (08:57→20:22)
[2018-09-23] MEDS: risperiDONE-M 0.5 MG TAB.RAPDIS PO SCH ×3 (08:57→20:20)
[2018-09-23] MEDS: INSULIN REGULAR, HUMAN 300 UNIT/3 ML VIAL SQ PRN (11:24)
[2018-09-23 13:55] LABS: *BILIRUBIN,URIN NEGATIVE (NEGATIVE); *BLOOD, URINE NEGATIVE (NEGATIVE); *CLARITY,URINE CLEAR (CLEAR); *COLOR,URINE YELLOW (YELLOW); *KETONES,URINE NEGATIVE (NEGATIVE); *UROBILINOGEN,URINE 0.2 E.U./dl (NORMAL); LEUKOCYTE ESTERASE ,URINE TRACE (NEGATIVE); NITRITE, URINE NEGATIVE (NEGATIVE); UGLUCOSE NEGATIVE (NEGATIVE)
[2018-09-23 14:01] LABS: MUCUS,URINE FEW /LPF (0-FEW); SQUAMOUS EPITHELIAL CELL,UR FEW /HPF (NONE SEEN)
[2018-09-23 14:02] LABS: BACTERIA,URINE FEW /HPF (NONE SEEN); RBC,URINE 0-3 /HPF (0-3)
[2018-09-23 16:00] VITALS: BP 116/43
--- NOTE | 2018-09-23 18:07 | NUR ---
GPS: Patient remains calm, compliant to all meds, V/S taking and Accuchecks. Denies SI and HI. Pt denies pain, no s/sx of hypo/hyperglycemia. Not in any acute distress at this time. Will endorse to incoming nurse for continuity of care.
--- NOTE | 2018-09-23 18:26 | NUR ---
GPS :RECEIVED PATIENT ALERT ORIENTED X1, DENIES SI AND HI, NO SOB, OFFERED TO CHECK VS, PATIENT ALLOWS VS MONITORED, PATIENT COMPLY WITH ORAL MEDICATION, ACCUCHECK WAS PERFORMED INSULIN WAS GIVEN PER SLIDING SCALE, ABLE TO COLLECT UA SPECIMEN AND WAS SEND TO LABSPATIENT CONTINUED TO BE CALM AND COOPERATIVE, TOOK A QUICK AFTERNOON NAP AND WAS SEEN WALKING BY THE HALLWAY
[2018-09-23 20:16] VITALS: BP 119/47
[2018-09-23] MEDS: ATORVASTATIN 10 MG TABLET PO SCH (20:19)
[2018-09-24] MEDS: BLOOD SUGAR DIAGNOSTIC 1 EACH STRIP VI SCH ×4 (06:02→20:30)
--- NOTE | 2018-09-24 06:03 | NUR ---
GPS: Remain cooperative with meds and care. blood sugar 88 mg/dl this morning. Pt while awake gets loud and responding to internal stimuli in her room, required redirection several times. slept 8 hrs through the night. continue plan of care.
[2018-09-24] MEDS: risperiDONE-M 0.5 MG TAB.RAPDIS PO SCH ×3 (08:45→20:30)
[2018-09-24] MEDS: AMLODIPINE 5 MG TABLET PO SCH ×2 (09:00→20:33)
[2018-09-24] MEDS: METOPROLOL TARTRATE 25 MG TABLET PO SCH ×2 (09:00→20:33)
[2018-09-24] MEDS: DOCUSATE SODIUM 100 MG CAPSULE PO SCH ×2 (09:00→17:00)
[2018-09-24] MEDS: DIVALPROEX SPRINKLE 125 MG CAP.SPRINK PO SCH ×3 (09:00→20:32)
[2018-09-24 20:00] VITALS: BP 138/48
[2018-09-24] MEDS: INSULIN REGULAR, HUMAN 300 UNIT/3 ML VIAL SQ PRN (20:30)
[2018-09-24] MEDS: ATORVASTATIN 10 MG TABLET PO SCH (20:32)
[2018-09-25] MEDS: BLOOD SUGAR DIAGNOSTIC 1 EACH STRIP VI SCH ×4 (06:30→20:32)
[2018-09-25] MEDS: DIVALPROEX SPRINKLE 125 MG CAP.SPRINK PO SCH ×3 (08:03→20:25)
[2018-09-25] MEDS: risperiDONE-M 0.5 MG TAB.RAPDIS PO SCH ×3 (08:03→20:24)
[2018-09-25] MEDS: DOCUSATE SODIUM 100 MG CAPSULE PO SCH ×2 (08:37→16:13)
[2018-09-25] MEDS: AMLODIPINE 5 MG TABLET PO SCH ×2 (08:37→20:25)
[2018-09-25] MEDS: METOPROLOL TARTRATE 25 MG TABLET PO SCH ×2 (08:37→20:26)
--- NOTE | 2018-09-25 18:14 | NUR ---
patient still refused for vital sign taken refused acccheck done, selected medication she state that i don't need to take any medication because i will be going home today.
[2018-09-25 20:08] VITALS: BP 147/64
[2018-09-25] MEDS: ATORVASTATIN 10 MG TABLET PO SCH (20:25)
--- NOTE | 2018-09-26 05:55 | NUR ---
GPS: Remain calm and cooperative with medications and care. assisted with ADL'S. no c/o pain or discomfort at this time. slept 8 hrs through the night. Resting in bed comfortably. continue to monitor for safety.
[2018-09-26] MEDS: BLOOD SUGAR DIAGNOSTIC 1 EACH STRIP VI SCH ×4 (06:05→21:00)
[2018-09-26] MEDS: DOCUSATE SODIUM 100 MG CAPSULE PO SCH ×2 (08:35→17:00)
[2018-09-26] MEDS: METOPROLOL TARTRATE 25 MG TABLET PO SCH ×2 (08:35→21:00)
[2018-09-26] MEDS: AMLODIPINE 5 MG TABLET PO SCH ×2 (08:35→20:53)
[2018-09-26] MEDS: risperiDONE-M 0.5 MG TAB.RAPDIS PO SCH ×3 (08:36→20:52)
[2018-09-26] MEDS: DIVALPROEX SPRINKLE 125 MG CAP.SPRINK PO SCH ×3 (08:36→20:52)
[2018-09-26] MEDS ORDERED: PATIENT MAY USE OWN MED- MD OK IM ONE (11:30)
[2018-09-26] MEDS ORDERED: MISCELLANEOUS MED INJ ONE (11:30)
--- NOTE | 2018-09-26 19:50 | NUR ---
Received patient in bed AAO x1. No acute distress was noted. No Compliant with medications and care.Denies SI. Safety measures maintained. Continue to monitor.
[2018-09-26 20:08] VITALS: BP 105/66
--- NOTE | 2018-09-26 20:25 | NUR ---
Metoprolol 25 mg was held due to low blood pressure: 105/66. Continue to monitor.
[2018-09-26] MEDS: ATORVASTATIN 10 MG TABLET PO SCH (20:52)
--- NOTE | 2018-09-27 04:42 | NUR ---
Patient refused Accucheck. Risk and benefit explained. Continue to monitor.
[2018-09-27] MEDS: BLOOD SUGAR DIAGNOSTIC 1 EACH STRIP VI SCH ×4 (06:48→20:28)
[2018-09-27] MEDS: DOCUSATE SODIUM 100 MG CAPSULE PO SCH ×2 (09:03→17:00)
[2018-09-27] MEDS: risperiDONE-M 0.5 MG TAB.RAPDIS PO SCH ×3 (09:03→20:16)
[2018-09-27] MEDS: DIVALPROEX SPRINKLE 125 MG CAP.SPRINK PO SCH ×3 (09:03→20:16)
[2018-09-27] MEDS: AMLODIPINE 5 MG TABLET PO SCH ×2 (09:03→20:16)
[2018-09-27] MEDS: METOPROLOL TARTRATE 25 MG TABLET PO SCH ×2 (09:06→20:17)
[2018-09-27 16:00] VITALS: BP 110/45
--- NOTE | 2018-09-27 18:39 | NUR ---
GPS: RECEIVED PATIENT ALERT ORIENTED COMPLIANT WITH ACCUCHECK, VS, AND MEDICATION, NO DISTRESS AT THE MOMENT
[2018-09-27] MEDS: ATORVASTATIN 10 MG TABLET PO SCH (20:16)
[2018-09-27 22:52] VITALS: BP 121/52
--- NOTE | 2018-09-28 06:28 | NUR ---
GPS: Took all due HS meds. Slept x6 hrs. Refused ac breakfast FSBS. Attempted to explain risks vs benefits however pt became agitated and gestured to be left alone. No acute distress noted. No aggressive behavior noted during shift. All safety precautions in place. Will cont to monitor.
[2018-09-28] MEDS: BLOOD SUGAR DIAGNOSTIC 1 EACH STRIP VI SCH ×4 (07:30→21:00)
[2018-09-28] MEDS: DOCUSATE SODIUM 100 MG CAPSULE PO SCH ×2 (09:04→17:00)
[2018-09-28] MEDS: METOPROLOL TARTRATE 25 MG TABLET PO SCH ×2 (09:05→20:39)
[2018-09-28] MEDS: AMLODIPINE 5 MG TABLET PO SCH ×2 (09:05→20:39)
[2018-09-28] MEDS: DIVALPROEX SPRINKLE 125 MG CAP.SPRINK PO SCH ×3 (09:06→20:36)
[2018-09-28] MEDS: risperiDONE-M 0.5 MG TAB.RAPDIS PO SCH ×3 (09:07→20:37)
[2018-09-28 10:00] VITALS: BP 143/67
--- NOTE | 2018-09-28 13:27 | NUR ---
Pt received awake, AOx2, no acute distress or pain noted. Pt ambulates with steady gait to bathroom, BMx1. Pt refused morning accucheck and coverage, but cooperative with afternoon's, BS 95, no coverage required. Pt compliant with PO medication administration. Denies SI/HI, and able to CFS. Pt demonstrating a calm demeanor except when staff mentioned a court meeting today, Pt became upset yelling at staff to get out. No other outburst this shift. VSS. Will continue to monitor Pt for safety.
--- NOTE | 2018-09-28 15:46 | NUR ---
Discharge planning: track worker called [facility] and spoke with admission coordinator, Arturo, regarding patient progress and returning to facility. Per Arturo, patient no longer has a bed at facility as her bed hold and he gave bed away to a new resident. Arturo further stated that no female beds are available at this time. track worker has informed Dr. Oneal. track worker currently looking for new placement. track worker has sent referrals to [facility] [ ; ] and [facility] [ ; ]. track worker awaiting response.
[2018-09-28 16:00] VITALS: BP 117/46
--- NOTE | 2018-09-28 16:08 | NUR ---
Discharge planning: room worker sent referral to [facility] [ ; ] for admission review. room worker awaiting call back.
--- NOTE | 2018-09-28 19:40 | NUR ---
Received patient in bed AAO x1. No acute distress was noted. No Compliant with medications and care.Denies SI. Safety measures maintained. Continue to monitor.
--- NOTE | 2018-09-28 20:20 | NUR ---
Metoprolol 25 mg and Amlodipine 5 mg were held due to low heart rate: 58. BP: 114/75. Continue to monitor.
--- NOTE | 2018-09-28 20:26 | NUR ---
Patient refused Accucheck. Risk and benefit explained. Continue to monitor.
[2018-09-28] MEDS: ATORVASTATIN 10 MG TABLET PO SCH (20:37)
[2018-09-28 20:55] VITALS: BP 114/75
[2018-09-29] MEDS: BLOOD SUGAR DIAGNOSTIC 1 EACH STRIP VI SCH ×2 (06:47→11:30)
--- NOTE | 2018-09-29 07:01 | NUR ---
GPS: Remain cooperative with meds and care. blood sugar 84 mg/dl this morning. Pt while awake gets loud and responding to internal stimuli in her room, required redirection several times. slept 10 hrs through the night. continue plan of care.
--- NOTE | 2018-09-29 08:27 | NUR ---
Gps/Liquefier- Refusing routine am. medications, explained to patient reasons , gets loud , argues and refused to have her v/s check. Will re offer and re-check v/s at a later time.
[2018-09-29] MEDS: risperiDONE-M 0.5 MG TAB.RAPDIS PO SCH ×2 (09:00→12:08)
[2018-09-29] MEDS: DOCUSATE SODIUM 100 MG CAPSULE PO SCH (09:00)
[2018-09-29] MEDS: AMLODIPINE 5 MG TABLET PO SCH (09:00)
[2018-09-29] MEDS: DIVALPROEX SPRINKLE 125 MG CAP.SPRINK PO SCH ×2 (09:00→12:07)
[2018-09-29] MEDS: METOPROLOL TARTRATE 25 MG TABLET PO SCH (09:00)
--- NOTE | 2018-09-29 10:59 | NUR ---
Gps/Continuous Process Machine Operator- Awakened, reoffered routine am meds. refused.
--- NOTE | 2018-09-29 11:18 | NUR ---
DC NOTE: Patient will be discharged to [facility] [[address] [place] [address]; ] by ambulance transportation at 1:00pm. Please arrange ambulance transportation for this patient. Acceptance to the facility was provided by career coordinator, Yobany Howell, who states they are ready to accept the patient today. Patient is AxOx1-2, denies suicidal and homicidal ideation, is able to plan for self-care, and is agreeable with discharge plan. Patient has no responsible green party to contact for discharge at this time. Patient will follow-up with Hong Carvajal [psychiatrist] and Dr. Banegas [sanitation laborer] at the facility. Patient has been provided with mental health resources including [facility] [ ], [facility] [ ], and National Suicide Prevention Lifeline [ ].
--- NOTE | 2018-09-29 12:00 | NUR ---
Gps/Elementary Spanish Teacher- reoffered routine m meds. for the 3rd time, was able to take psychotropic med. but still refused b/p meds. Patient was able to left staff take her vital signs. Informed of her discharge plan this pm. to [facility].
--- NOTE | 2018-09-29 13:00 | NUR ---
Gps/Auto Haulaway Driver- Called [facility], report was given to Nurse Agatha. All belongings was given back to patient, no complaints, no distress. Discharged via ambulance.
== END 2018-09-29 13:30 | DRG 885 ==
LOC: ER 19:48 → GPS 21:24
PROVIDERS: ADMIT Psychiatry & Neurology Psychiatry; ATTEND Nurse Practitioner Acute Care
DX: F31.2 Bipolar disorder, current episode manic severe with psychotic features (principal); N18.9 Chronic kidney disease, unspecified; N17.9 Acute kidney failure, unspecified; E44.0 Moderate protein-calorie malnutrition; Z68.1 Body mass index [BMI] 19.9 or less, adult; R64 Cachexia; F20.0 Paranoid schizophrenia; G20 Parkinson's disease; F02.80 Dementia in other diseases classified elsewhere, unspecified severity, without behavioral disturbance, psychotic disturbance, mood disturbance, and anxiety; Z87.01 Personal history of pneumonia (recurrent); E78.5 Hyperlipidemia, unspecified; Z79.899 Other long term (current) drug therapy; Z86.73 Personal history of transient ischemic attack (TIA), and cerebral infarction without residual deficits; E10.22 Type 1 diabetes mellitus with diabetic chronic kidney disease; I12.9 Hypertensive chronic kidney disease with stage 1 through stage 4 chronic kidney disease, or unspecified chronic kidney disease; K21.9 Gastro-esophageal reflux disease without esophagitis; G47.00 Insomnia, unspecified; Z79.4 Long term (current) use of insulin; Z79.82 Long term (current) use of aspirin; Z91.19 Patient's noncompliance with other medical treatment and regimen
CPT/HCPCS: 36415; 71045; 85025; 87086; 93005; A4663; G0480; G0480-TC; J1815; J2358

== ENCOUNTER 2021-07-16 13:18 | Inpatient (IN) | payer MEDICARE, OTHER ==
[~2021-07-16] VITALS: Ht 154.9 cm; Wt 39.5 kg
[2021-07-16 11:00] VITALS: BP 172/63
[~2021-07-16 13:18] MED LIST changes: -ASPI81TA31 PO; -ATOR20TA PO; +ATORVASTATIN 10 MG TABLET; -CLON1PAT TD; -HYDR-4075 PO; -HYDR25TA86 GT; -LISI-603 PO; +LISI20TA30 PO; -MULT1TAB73 PO; -NA P133E RC
--- NOTE | 2021-07-16 13:22 | NUR ---
Assited pt. to bed and she's refusing to be touch pt. screaming and non-compliant refusing nursing care. patient in with two bags of cloths.
[2021-07-16] MEDS ORDERED: ZIPRASIDONE MESYLATE 20 MG VIAL IM ONE ×2 (13:30→13:38)
[2021-07-16] MEDS ORDERED: DOCU100C36 PO (13:36)
[2021-07-16] MEDS ORDERED: HYDR25TA4 PO (13:36)
[2021-07-16] MEDS ORDERED: AMLO-212 PO (13:36)
[2021-07-16] MEDS ORDERED: LOSA100T31 PO (13:36)
[2021-07-16] MEDS ORDERED: ACET-2154 PO (13:36)
[2021-07-16] MEDS ORDERED: LORA0.5T48 PO (13:36)
[2021-07-16] MEDS ORDERED: CEPH250C PO (13:36)
[2021-07-16] MEDS ORDERED: QUET25TA PO (13:36)
[2021-07-16 13:45] LABS: HEMATOCRIT 32.5 % (31.2-41.9); MEAN CORPUSCULAR HEMOGLOBIN 29.2 uug (24.7-32.8); PLATELET COUNT (AUTO) 187 K/uL (179-408)
[2021-07-16 13:52] LABS: CARBON DIOXIDE 29 mmol/L (21-32); CHLORIDE 108 mmol/L (98-107); CREATININE 1.2 mg/dL (0.6-1.3); GLUCOSE 146 mg/dL (74-106); POTASSIUM 4.1 mmol/L (3.5-5.1); UREA NITROGEN, BLOOD 32 mg/dL (7-18)
--- NOTE | 2021-07-16 13:54 | NUR ---
Patient medicated with the help of security and pt. seem to be more compliant with him present. in the room at this time connected to bedside monitor.
[2021-07-16 14:09] LABS: ALANINE AMINOTRANSFERASE 19 U/L (14-59); ALKALINE PHOSPHATASE 70 U/L (50-136); ASPARTATE AMINOTRANSFERASE 15 U/L (15-37); BILIRUBIN,DIRECT 0.1 mg/dL (0.0-0.2); BILIRUBIN,TOTAL 0.3 mg/dL (0.2-1.0); CREATINE KINASE, TOTAL 53 U/L (26-192); TOTAL PROTEIN, SERUM 7.2 g/dL (6.4-8.2)
[2021-07-16 14:13] LABS: ACETAMINOPHEN < 2.0 ug/mL (10-30)
--- NOTE | 2021-07-16 14:39 | NUR ---
pt. incon unable to obtain urine sample.
--- NOTE | 2021-07-16 15:40 | NUR ---
UA sent to lab.
[2021-07-16 16:05] LABS: *BILIRUBIN,URIN NEGATIVE (NEGATIVE); *BLOOD, URINE NEGATIVE (NEGATIVE); *CLARITY,URINE CLEAR (CLEAR); *COLOR,URINE YELLOW (YELLOW); *KETONES,URINE NEGATIVE (NEGATIVE); *UROBILINOGEN,URINE 0.2 E.U./dl (NORMAL); LEUKOCYTE ESTERASE ,URINE 1+ (NEGATIVE); NITRITE, URINE NEGATIVE (NEGATIVE); UGLUCOSE NEGATIVE (NEGATIVE)
[2021-07-16 16:11] LABS: ETHANOL < 3 MG/DL (0-0)
[2021-07-16 16:15] LABS: *AMPHETAMINE, URINE NEGATIVE (NEGATIVE); *CANNABINOID, URINE NEGATIVE (NEGATIVE); *COCCAINE, URINE NEGATIVE (NEGATIVE); *OPIATE, URINE NEGATIVE (NEGATIVE); *PHENCYCLIDINE SCREEN,URINE NEGATIVE (NEGATIVE)
--- NOTE | 2021-07-16 16:31 | NUR ---
97,7 HR of 69 106/58 saturation of 98% on Ra,
[2021-07-16 17:30] LABS: BACTERIA,URINE FEW /HPF (NONE SEEN); RBC,URINE 0-3 /HPF (0-3); SQUAMOUS EPITHELIAL CELL,UR FEW /HPF (NONE SEEN)
--- NOTE | 2021-07-16 19:20 | NUR ---
Report given to Maura Gibbons
--- NOTE | 2021-07-16 20:40 | NUR ---
Admitted a 87 years old female with Dx of AMS and UTI. Patient alert to self only. Mainly confused and disoriented. Micronesian speaking, able to speak and understand Ghanaian. In no apparent distress. No signs of pain or SOB. Anxious and speaks loudly. Constantly speaking Micronesian. No IV site present on admission. Will start one. Routine admission care done. Plan of care initiated. Safety measure initiated and call light within reached. Continue to monitor.
[2021-07-16] MEDS ORDERED: BISACODYL 10 MG SUPP.RECT RC PRN (21:45)
[2021-07-16] MEDS ORDERED: MAGNESIUM HYDROXIDE 30 ML LIQUID UDC PO PRN (21:45)
--- NOTE | 2021-07-16 22:40 | NUR ---
Report given to Aury ARSHAD. Patient transported to room 315 via wheelchair, VSLisa, ADRIANNE, in stable condition. Belongings sent to patient.
[2021-07-16] MEDS ORDERED: ACETAMINOPHEN 325 MG TABLET PO PRN (22:45)
[2021-07-16] MEDS: QUETIAPINE FUMARATE 25 MG TABLET PO SCH (23:06)
--- NOTE | 2021-07-16 23:14 | NUR ---
Started new IV site on left FA #22G.
[2021-07-16] MEDS: LORAZEPAM 2 MG/1 ML VIAL IV PRN (23:25)
[2021-07-16] MEDS ORDERED: CEFTRIAXONE /D5W 50ML IVPB **ER PYXIS IV ONE (23:33)
[2021-07-16] MEDS: CEFTRIAXONE 1 G in IV DEXTROSE 5% 50 ML IV SCH (23:42)
--- NOTE | 2021-07-17 03:53 | NUR ---
Patient BP 168/58, HR 64. Asleep at this time. Asymptomatic. GUM COOK Princess made aware. Awaiting for any new order.
[2021-07-17 04:05] VITALS: BP 168/58
[2021-07-17] MEDS: PANTOPRAZOLE SODIUM 40 MG TABLET.DR PO SCH (06:10)
--- NOTE | 2021-07-17 06:28 | NUR ---
Pt remains alert to self only. In no acute distress. IV site on left FA intact and patent. No adverse reaction noted from IV antibiotic. Assisted to toilet per request. Safety measure maintained and call light within reached.
[2021-07-17 06:47] LABS: HEMATOCRIT 30.6 % (31.2-41.9); MEAN CORPUSCULAR HEMOGLOBIN 29.6 uug (24.7-32.8); MEAN CORPUSCULAR VOLUME 90.1 fL (75.5-95.3); PLATELET COUNT (AUTO) 171 K/uL (179-408)
[2021-07-17 07:23] LABS: BILIRUBIN,TOTAL 0.2 mg/dL (0.2-1.0); CREATININE 1.1 mg/dL (0.6-1.3); MAGNESIUM 2.4 mg/dL (1.8-2.4); PHOSPHOROUS 3.5 mg/dL (2.5-4.9); POTASSIUM 4.4 mmol/L (3.5-5.1); TOTAL PROTEIN, SERUM 6.4 g/dL (6.4-8.2)
--- NOTE | 2021-07-17 07:30 | NUR ---
Received patient in bed awake. Patient confused, Nauruan speaking. Oriented to self. On room air with no shortness of breath at the moment. No respiratory distress noted. Left forearm 20G flushing patent and intact. Safety precautions in place. Will continue to monitor patient.
[2021-07-17] MEDS: AMLODIPINE 5 MG TABLET PO SCH (08:43)
[2021-07-17] MEDS: QUETIAPINE FUMARATE 25 MG TABLET PO SCH ×3 (08:44→17:15)
[2021-07-17] MEDS ORDERED: DOCUSATE SODIUM 100 MG CAPSULE PO SCH (09:00)
[2021-07-17 10:09] VITALS: BP 143/51
[2021-07-17 11:21] VITALS: BP 158/63
[2021-07-17] MEDS: DOCUSATE SODIUM 100 MG CAPSULE PO SCH ×2 (11:47→17:16)
--- NOTE | 2021-07-17 12:24 | NUR ---
WOUND CARE CONSULT: REVIEWED CHART AND SPOKE WITH NURSING STAFF WHO STATE PT IS SCRATCHING AT HER SKIN. RASH WAS PRESENT ON ADMISSION PER NURSING STAFF. DEFER TO PMD FOR SKIN CONDITION. CURRENT QUIANA SCORE IS 18. Addendum: 07/17/21 at 1227 by MARIJA LIU RN PLEASE DISREGARD ABOVE NOTE. INCORRECT PATIENT.
[2021-07-17] MEDS: LORAZEPAM 2 MG/1 ML VIAL IV PRN ×2 (12:38→21:52)
--- NOTE | 2021-07-17 12:38 | NUR ---
WOUND CARE: RECEIVED CONSULT FOR SACRAL REDNESS. PT PRESENTS WITH QUIANA SCORE OF 18 AND SOME SCARRING TO SACRAL/BUTTOCKS AREA, PRESENT ON ADMISSION. DISCUSSED SKIN PROTECTION WITH NURSING STAFF. MD IN AGREEMENT WITH PLAN OF CARE.
[2021-07-17] MEDS: GLUCERNA SHAKE 237 ML CAN PO SCH ×2 (13:18→17:16)
[2021-07-17 16:10] VITALS: BP 149/70
--- NOTE | 2021-07-17 16:19 | NUR ---
Clinical Social Work Note: SW was not able conduct an assessment with the pt as pt was asleep. SW attempted to wake pt but pt remained asleep. SW will revisit pt on 07/20/21 to continue assessment. SW contacted pt's contact on face sheet. Pt has a conservator from the public guardian office. Correct contact number: ([phone]). ISMA left a voicemail for a call back regarding pt.
[2021-07-17] MEDS: DIVALPROEX SPRINKLE 125 MG CAP.SPRINK PO SCH (17:15)
--- NOTE | 2021-07-17 18:00 | NUR ---
Patient refuses for Mepilex application on sacral area.
--- NOTE | 2021-07-17 19:58 | NUR ---
Hydralazine 25mg PO Q8H PRN for SBP above [address] Reyes.
[2021-07-17] MEDS ORDERED: hydrALAZINE HCL 25 MG TABLET PO PRN (20:00)
[2021-07-17 20:41] VITALS: BP 146/72
[2021-07-17] MEDS: CEFTRIAXONE 1 G in IV DEXTROSE 5% 50 ML IV SCH (21:45)
[2021-07-18 04:43] VITALS: BP 132/77
[2021-07-18] MEDS: PANTOPRAZOLE SODIUM 40 MG TABLET.DR PO SCH (06:57)
--- NOTE | 2021-07-18 06:58 | NUR ---
Patient slept intermittently ,confused .Czech speaking with episodes of getting out of bed and screaming.Ativan IVP given.No respiratory distress noted. Left forearm 20G patent and intact.Bed alarm on. Will continue to monitor patient.
--- NOTE | 2021-07-18 08:45 | NUR ---
PATIENT IS OUT OF BED WALKING AROUND ASSISTED BACK INTO ROOM AND INSTRUCTED TO MAKE SURE THAT SOMEONE IS AVAILABLE TO ASSIST HER BUT SHE WANTED TO WEAR HER OWN CLOTHES MADE COMFORTABLE WILL CONTINUE TO OBSERVE.
[2021-07-18] MEDS: DIVALPROEX SPRINKLE 125 MG CAP.SPRINK PO SCH ×3 (09:00→17:00)
[2021-07-18] MEDS: QUETIAPINE FUMARATE 25 MG TABLET PO SCH ×3 (09:00→17:00)
[2021-07-18] MEDS: CYANOCOBALAMIN 1000 MCG/ML VIAL IM SCH (09:00)
[2021-07-18] MEDS: DOCUSATE SODIUM 100 MG CAPSULE PO SCH ×2 (09:00→17:00)
[2021-07-18] MEDS: AMLODIPINE 5 MG TABLET PO SCH (09:01)
[2021-07-18] MEDS: GLUCERNA SHAKE 237 ML CAN PO SCH ×3 (09:02→17:19)
--- NOTE | 2021-07-18 09:08 | NUR ---
PATIENT REFUSED MEDS SO MANY ATTEMPTS EVEN WITH A GEORGIAN SPEAKING NURSE PATIENT IS CONFUSED AND DISORIENTED AND REFUSED ALL HER MEDICATIONS AT THIS TIME.
--- NOTE | 2021-07-18 12:32 | NUR ---
IN ROOM SCREAMING IN ESTONIAN PUSHING LUNCH TRAY AWAY BUT DID DRINK HER GLUCERNA REFUSED HER DUE PSYCH MEDICATIONS DR VERAS WAS HERE AND I NOTIFIED HER THAT PATIENT HAS BEEN REFUSING HER MEDICATIONS WITH NO NEW ORDERS AT THIS TIME.PATIENT IS ALERT TO SELF ONLY WITH CONFUSSION AND DISORIENTATION AT THIS TIME.
[2021-07-18] MEDS: LORAZEPAM 2 MG/1 ML VIAL IV PRN ×2 (12:58→21:36)
[2021-07-18 16:42] VITALS: BP 142/62
--- NOTE | 2021-07-18 18:00 | NUR ---
PATIENT REFUSED ALL ORAL MEDICATIONS TODAY DESPITE SWEDISH INTERPRETATION THAT SHE NEEDED THEM PER HER DOCTOR CONFUSED AND DISORIENTED AT THIS TIME.
[2021-07-18 20:13] VITALS: BP 152/98
--- NOTE | 2021-07-18 20:15 | NUR ---
PATIENT WAS NOTED TO HAVE AN ELEVATED BLOOD PRESSURE, HOWEVER, HAS BEEN REFUSING PO MEDICATIONS. ATTEMPTED TO CALM PATIENT DOWN.
--- NOTE | 2021-07-18 20:15 | NUR ---
RECEIVED PATIENT IN BED. AWAKE, ALERT, CONFUSED. SPEAKS ONLY AZERBAIJANI. INCOHERENT MUMBLING AND AGGRESSION NOTED. IV ACCESS AT LFA PATENT AND INTACT, COVERED WITH GAUZE. NO ACUTE DISTRESS NOTED AT THIS TIME. ABLE TO AMBULATORY TO THE RESTROOM. SAFETY PRECAUTIONS INITIATED. FALL PREVENTION PRECAUTIONS IN PLACE. WILL CONTINUE TO MONITOR.
[2021-07-18 21:00] VITALS: BP 142/96
[2021-07-18] MEDS: CEFTRIAXONE 1 G in IV DEXTROSE 5% 50 ML IV SCH (21:36)
--- NOTE | 2021-07-18 21:40 | NUR ---
PRN DOSE OF ATIVAN 0.5MG/ 0.25ML GIVEN FOR AGGRESSION AND AGITATION.
--- NOTE | 2021-07-19 02:43 | NUR ---
PATIENT PULLED OUT IV, WITH AGGRESSION NOTED. INCOHERENTLY YELLING AND CURSING AT NURSES. JIG AND FIXTURE BUILDER APPRENTICE ROBYN, COLD PATCHER NOTIFIED REGARDING PATIENT'S CONDITION. AWAIT JIG AND FIXTURE BUILDER APPRENTICE'S RESPONSE/ORDER.
--- NOTE | 2021-07-19 03:35 | NUR ---
EDER RUIZ ORDERED HALDOL 2.5MG IV ONCE.
--- NOTE | 2021-07-19 03:38 | NUR ---
CLARIFIED ORDER WITH RESTAURANT HOSPITALITY MANAGER, RESTAURANT HOSPITALITY MANAGER ADVISED TO GIVE HALDOL 2.5MG IM.
[2021-07-19] MEDS ORDERED: HALOPERIDOL LACTATE 5 MG/1 ML VIAL IM ONE (03:45)
--- NOTE | 2021-07-19 04:06 | NUR ---
PATIENT GIVEN HALDOL 2.5MG IM PER PAYROLL TAX ANALYST ORDER. WILL CONTINUE TO MONITOR.
[2021-07-19 04:31] VITALS: BP 138/55
--- NOTE | 2021-07-19 05:47 | NUR ---
ATTEMPTED TO REINSERT IV, HOWEVER PATIENT REFUSED AND BECAME COMBATIVE. PATIENT ALSO REFUSED MORNING BLOOD DRAW.
--- NOTE | 2021-07-19 06:17 | NUR ---
PATIENT REFUSED TO TAKE 7AM SCHEDULED PROTONIX.
[2021-07-19] MEDS: PANTOPRAZOLE SODIUM 40 MG TABLET.DR PO SCH (07:00)
--- NOTE | 2021-07-19 08:00 | NUR ---
RECEIVED PATIENT IN BED AWAKE ALERT TO SELF WITH CONFUSSION AND DISORIENTATION UNCOOPERATIVE REFUSING TO EAT DIFFICULT TO REDIRECT PATIENT SHE GETS AGITATED AND SCREAMS ALL NEEDS ANTICIPATED AND SATISFIED CALL LIGHT AND PERSONAL BELONGINGS ARE WITHIN EASY REACH AT THIS TIME WILL CONTINUE TO OBSERVE.
[2021-07-19] MEDS: CYANOCOBALAMIN 1000 MCG/ML VIAL IM SCH (08:34)
[2021-07-19] MEDS: DOCUSATE SODIUM 100 MG CAPSULE PO SCH ×2 (08:35→16:15)
[2021-07-19] MEDS: AMLODIPINE 5 MG TABLET PO SCH (08:35)
[2021-07-19] MEDS: QUETIAPINE FUMARATE 25 MG TABLET PO SCH ×3 (08:35→16:15)
[2021-07-19] MEDS: DIVALPROEX SPRINKLE 125 MG CAP.SPRINK PO SCH ×3 (08:35→16:15)
[2021-07-19] MEDS: GLUCERNA SHAKE 237 ML CAN PO SCH ×3 (08:36→16:15)
--- NOTE | 2021-07-19 10:00 | NUR ---
REFUSED ALL HER MEDICATIONS DESPITE ALL EXPLAINATIONS AND ENCOURAGEMENT GETS AGITATED SCREAMS AND YELLS UNABLE TO REDIRECT MOST OF THE TIME.CHECKED ON HOURLY ROUNDS TO MAINTAIN SAFETY WILL CONTINUE TO OBSERVE.
[2021-07-19 12:00] VITALS: BP 139/98
[2021-07-19] MEDS: LEVOTHYROXINE SODIUM 25 MCG TABLET PO SCH (12:00)
--- NOTE | 2021-07-19 14:16 | NUR ---
CONTINUE TO REFUSE REINSERTION OF IV HEPMATTHEW CONTINUES TO REFUSE HER MEDICATIONS DESPITE ALL EXPLAINATIONS WILL CONTINUE TO OBSERVE.
[2021-07-19 16:44] VITALS: BP 131/80
--- NOTE | 2021-07-19 17:24 | NUR ---
DR MAHER HERE SEEN PATIENT AWARE THAT PATIENT IS STILL NOT EATING AND NOT TAKING MEDICATIONS AND HAS BEEN EXHIBITING AGGRESSIVE BEHAVIORS SCREAMING AT TIMES CONFUSED DISORIENTED WITH POOR SAFETY AWARENESS AT THIS TIME.
--- NOTE | 2021-07-19 19:36 | NUR ---
RECEIVED PATIENT LYING IN BED. AWAKE, ALERT, WITH EPISODES OF CONFUSION. APPEARS CALMER TODAY. APPEARS DISHEVELED, AND HAS A FOUL ODOR AND POOR HYGIENE. PATIENT REFUSES TO TAKE A SHOWER. NO IV ACCESS AT THIS TIME PATIENT HAS BEEN REFUSING REINSERTION DESPITE EDUCATING PATIENT REGARDING NEED TO ADMINISTER ANTIBIOTICS.THOUGH PATIENT IS AMBULATORY, BED ALARM HAS BEEN ACTIVATED PATIENT HAS TENDENCY TO WANDER. WILL CONTINUE TO MONITOR.
[2021-07-19 20:11] VITALS: BP 142/80
[2021-07-19] MEDS: CEFTRIAXONE 1 G in IV DEXTROSE 5% 50 ML IV SCH (23:03)
--- NOTE | 2021-07-19 23:05 | NUR ---
REINSERTED IV AT RIGHT FOREARM, 22 GAUGE, PATENT AND INTACT. GIVEN SCHEDULED ANTIBIOTICS.
--- NOTE | 2021-07-20 00:43 | NUR ---
PATIENT REMOVED IV ACCESS AGAIN. PATIENT ALSO NOTED TO HAVE EPISODES OF DISORIENTATION. PATIENT CAUGHT PEEING ON THE FLOOR, REORIENTED PATIENT TO THE BATHROOM.
[2021-07-20] MEDS: LEVOTHYROXINE SODIUM 25 MCG TABLET PO SCH (06:48)
[2021-07-20] MEDS: PANTOPRAZOLE SODIUM 40 MG TABLET.DR PO SCH (06:48)
--- NOTE | 2021-07-20 06:49 | NUR ---
PATIENT REFUSED MORNING MEDICATION, ATTEMPTED TO REINSERT IV, HOWEVER, PATIENT REFUSED AND BECAME COMBATIVE. SAFETY PRECAUTIONS MAINTAINED. WILL ENDORSE TO DAY SHIFT.
--- NOTE | 2021-07-20 07:43 | NUR ---
RECEIVED PATIENT IN BED AWAKE ALERT TO SELF WITH CONFUSSION AND DISORIENTATION VERY UNCOOPERATIVE YELLING AT TIMES FOR NO APPARENT REASON PATIENT IS NON COMPLIANT AND UNCOOPERATIVE CALL LIGHTS AND PERSONAL BELONGINGS ARE WITHIN EASY REACH WILL CONTINUE TO OBSERVE.
[2021-07-20] MEDS: DIVALPROEX SPRINKLE 125 MG CAP.SPRINK PO SCH ×3 (09:00→16:23)
[2021-07-20] MEDS: QUETIAPINE FUMARATE 25 MG TABLET PO SCH ×3 (09:00→16:24)
[2021-07-20] MEDS: AMLODIPINE 5 MG TABLET PO SCH (09:00)
[2021-07-20] MEDS: CYANOCOBALAMIN 1000 MCG/ML VIAL IM SCH (09:00)
[2021-07-20] MEDS: DOCUSATE SODIUM 100 MG CAPSULE PO SCH ×2 (09:00→16:23)
[2021-07-20] MEDS: GLUCERNA SHAKE 237 ML CAN PO SCH ×3 (09:35→16:23)
[2021-07-20 10:01] LABS: HEMATOCRIT 31.7 % (31.2-41.9); MEAN CORPUSCULAR HEMOGLOBIN 30.1 uug (24.7-32.8); PLATELET COUNT (AUTO) 168 K/uL (179-408)
[2021-07-20 10:10] LABS: CREATININE 1.2 mg/dL (0.6-1.3); MAGNESIUM 2.6 mg/dL (1.8-2.4); POTASSIUM 4.5 mmol/L (3.5-5.1)
[2021-07-20 11:31] VITALS: BP 161/80
--- NOTE | 2021-07-20 13:15 | NUR ---
CRISIS TEAM HERE TO SEE PATIENT AND PATIENT PLACED ON HOLD OF THIS TIME SHE IS CONFUSED AND DISORIENTED AND UNABLE TO UNDERSTAND.
--- NOTE | 2021-07-20 15:34 | NUR ---
DR VERAS HERE AND SEEN PATIENT WITH NO NEW ORDERS AT TIME
[2021-07-20 16:00] VITALS: BP 164/65
[2021-07-20] MEDS ORDERED: DIVA125C2 PO (17:33)
[2021-07-20] MEDS ORDERED: HYDR-894 PO (17:33)
[2021-07-20] MEDS ORDERED: NUT.237L36 PO (17:33)
[2021-07-20] MEDS ORDERED: CEPH500C2 PO (17:33)
[2021-07-20] MEDS ORDERED: LEVO25TA9 PO (17:33)
[2021-07-20] MEDS ORDERED: FAMO-132 PO (17:33)
--- NOTE | 2021-07-20 18:15 | NUR ---
PATIENT DISCHARGED TAKEN BY W/CHAIR TO THE MENTAL HEALTH PATIENT IS CONFUSED AND DISORIENTED SHOUTING SCREAMING AND FIGHTING ALL THE WAY TO THE MENTAL HEALTH REPORT WAS GIVEN TO JANEY FOR CONTINUING CARE [id number] HAS A BAG OF CLOTHES REFUSED TO HAVE US GO THROUGH THEM VERY UNCOOPERATIVE RESTLESS AND AGGRESSIVE.
[2021-07-20] MEDS ORDERED: CEphaleXIN 500 MG CAPSULE PO SCH (21:00)
== END 2021-07-20 18:15 | DRG 689 ==
LOC: ER 13:18 → TELE3 22:35 → MEDSURG3 22:45
PROVIDERS: ADMIT Internal Medicine; ATTEND Internal Medicine
DX: N39.0 Urinary tract infection, site not specified (principal); G92.8 Other toxic encephalopathy; N17.0 Acute kidney failure with tubular necrosis; D68.59 Other primary thrombophilia; E44.0 Moderate protein-calorie malnutrition; Z68.1 Body mass index [BMI] 19.9 or less, adult; F25.9 Schizoaffective disorder, unspecified; D64.9 Anemia, unspecified; E03.9 Hypothyroidism, unspecified; E78.00 Pure hypercholesterolemia, unspecified; E78.5 Hyperlipidemia, unspecified; F01.50 Vascular dementia, unspecified severity, without behavioral disturbance, psychotic disturbance, mood disturbance, and anxiety; I25.10 Atherosclerotic heart disease of native coronary artery without angina pectoris; I25.2 Old myocardial infarction; Z86.73 Personal history of transient ischemic attack (TIA), and cerebral infarction without residual deficits; Z87.01 Personal history of pneumonia (recurrent); Z74.09 Other reduced mobility; R62.7 Adult failure to thrive; Z20.822 Contact with and (suspected) exposure to COVID-19; E11.9 Type 2 diabetes mellitus without complications; Z91.19 Patient's noncompliance with other medical treatment and regimen; Z79.4 Long term (current) use of insulin; I11.9 Hypertensive heart disease without heart failure
CPT/HCPCS: 36415; 70450; 71045; 83550; 83735; 84100; 84443; 84484; 85025; 85730; 87086; 93005; 97161; A4663; A6209; G0378; G0480; J0696; J1630; J2060; J3420; J3486; J7050; J7060

== ENCOUNTER 2021-07-20 18:20 | Inpatient (IN) | payer MEDICARE, OTHER ==
[~2021-07-20] VITALS: Ht 152.4 cm; Wt 38.1 kg
[~2021-07-20 18:20] MED LIST changes: +ACET-2154 PO; +AMLO-212 PO; +CEPH500C2 PO; +DIVA125C2 PO; +FAMO-132 PO; +HYDR-894 PO; +HYDR25TA4 PO; +LEVO25TA9 PO; +LORA0.5T48 PO; +LOSA100T31 PO; +NUT.237L36 PO; +QUET25TA PO
[2021-07-20] MEDS ORDERED: MAG HYDROX/AL HYDROX/SIMETH 30 ML LIQUID UDC PO PRN (19:00)
[2021-07-20] MEDS ORDERED: ACETAMINOPHEN 325 MG TABLET PO PRN (19:00)
[2021-07-20] MEDS ORDERED: MAGNESIUM HYDROXIDE 30 ML LIQUID UDC PO PRN (19:00)
[2021-07-20 19:51] VITALS: BP 153/66
[2021-07-20] MEDS: LORAZEPAM 0.5 MG TABLET PO PRN (20:57)
[2021-07-20] MEDS ORDERED: hydrALAZINE HCL 25 MG TABLET PO PRN (21:00)
[2021-07-20] MEDS ORDERED: BISACODYL 10 MG SUPP.RECT RC PRN (21:00)
[2021-07-20] MEDS: CEphaleXIN 500 MG CAPSULE PO SCH (21:20)
[2021-07-20] MEDS: TEMAZEPAM 7.5 MG CAPSULE PO PRN (22:05)
--- NOTE | 2021-07-20 23:00 | NUR ---
GPS ADMISSION NOTES: Female 76 yr old female admitted on a 5150 for Grave Disability. Patient arrived from [facility] originally according to medical record and intake for stating she was non compliant with care and agitated, upon arrival clinician determined she was gravely disabled because she is unable to care for self and has poor judgment, insight and impulse control. Patient is uncooperative. Patient denied suicide ideation or intent in the emergency department. Patient received on kelley chair, quiet and calm. Patient has a history of psychosis, dementia, HTN, HLD, CVA, CAD with previous NStemi, pneumonia, constipation, GERD schizophrenia, depression and chronic anxiety. Face to face evaluation completed. Pt uncooperative for skin assessment. 2100 Pt started to be agitated and restless, does not want to go to her room. Pt states, "there is a ghost in the room." Ativan given as ordered. Advisement and Patient Rights Handbook provided to patient. Patient plan of care initiated with observation Q15 minutes to ensure a safe environment. @2145 Temazepam given for sleep as ordered. @2230 Ativan and Temazepam effective. Call lights within reach. Safety measures initiated.
[2021-07-21] MEDS: LEVOTHYROXINE SODIUM 25 MCG TABLET PO SCH (06:07)
[2021-07-21 07:30] VITALS: BP 177/73
[2021-07-21 08:12] LABS: CREATININE 1.2 mg/dL (0.6-1.3)
[2021-07-21] MEDS: LORAZEPAM 0.5 MG TABLET PO PRN (08:31)
[2021-07-21] MEDS: DOCUSATE SODIUM 100 MG CAPSULE PO SCH ×2 (08:51→16:48)
[2021-07-21] MEDS: GLUCERNA 1.2 1000ML LIQUID PO SCH ×3 (08:51→16:48)
[2021-07-21] MEDS: CEphaleXIN 500 MG CAPSULE PO SCH ×2 (08:52→20:43)
[2021-07-21] MEDS: HYDROCHLOROTHIAZIDE 25 MG TABLET PO SCH (08:52)
[2021-07-21] MEDS: AMLODIPINE 5 MG TABLET PO SCH (08:52)
[2021-07-21] MEDS: FAMOTIDINE 20 MG TABLET PO SCH (08:53)
[2021-07-21] MEDS ORDERED: DIVALPROEX SPRINKLE 125 MG CAP.SPRINK PO SCH ×2 (09:00→13:00)
--- NOTE | 2021-07-21 10:15 | NUR ---
ISMA Conservator Contact: ISMA contacted the public guardian's office and spoke with Jeromy who stated that effective since 2018, pt does not have any form of conservatorship and pt does not have any family contact information in their office.
[2021-07-21] MEDS: risperiDONE-M 0.5 MG TAB.RAPDIS PO SCH ×2 (11:00→20:43)
[2021-07-21 15:06] VITALS: BP 168/46
--- NOTE | 2021-07-21 15:16 | NUR ---
GPS: Nursing Notes: Thought Disorder: Patient is awake and responding to her name, impaired judgment, resistant with nursing care, poor appetite, paranoid behavior, refusing her medications, internally preoccupied, episodes of shouting, redirected and reoriented during shift, poor impulse control, believes that someone is coming to fix her teeth, loud and pressured speech, gets easily irritable when questioned by staff, redirected and reoriented, but unable to follow directions, paranoid behavior, unable to formulate a viable plan for self care, continue with treatment plan.
[2021-07-21 20:00] VITALS: BP 165/58
[2021-07-22] MEDS: LEVOTHYROXINE SODIUM 25 MCG TABLET PO SCH (06:15)
[2021-07-22] MEDS: GLUCERNA 1.2 1000ML LIQUID PO SCH ×3 (09:00→17:00)
[2021-07-22] MEDS: risperiDONE-M 0.5 MG TAB.RAPDIS PO SCH ×2 (09:00→22:00)
[2021-07-22] MEDS: DOCUSATE SODIUM 100 MG CAPSULE PO SCH ×2 (09:00→22:00)
[2021-07-22] MEDS: FAMOTIDINE 20 MG TABLET PO SCH (09:00)
[2021-07-22] MEDS: AMLODIPINE 5 MG TABLET PO SCH (09:00)
[2021-07-22] MEDS: HYDROCHLOROTHIAZIDE 25 MG TABLET PO SCH (09:00)
[2021-07-22] MEDS: CEphaleXIN 500 MG CAPSULE PO SCH ×2 (09:00→22:00)
--- NOTE | 2021-07-22 10:09 | NUR ---
GPS: PT ISOLATIVE ON BED, REFUSED AM MEDS AND BREAKFAST. PT TALKING TO SELF. NO AGITATION OR SCREAMING NOTED AT THIS TIME. ENCOURAGED TO PARTICIPATE WITH GROUP THERAPY BUT REFUSED. WILL MONITOR CLOSELY.
--- NOTE | 2021-07-22 10:23 | NUR ---
ISMA Initial Discharge Plan: Pt is a 76 year old female admitted to [facility] [address] [place] [address] on a 5150 hold for gravely disabled adult. ISMA contacted Angelica from the facility ([phone]) who stated that pt is welcome back upon discharge with a few days notice. Angelica reported pt does not have any family contact. ISMA will continue to work with pt, facility and MD to ensure a safe and proper discharge plan.
--- NOTE | 2021-07-22 10:24 | NUR ---
SW Admit Source: Pt is a 76 year old female admitted to [facility] from [facility] [address] [place] [address] on a 5150 hold for gravely disabled adult. ISMA contacted Angelica from the facility ([phone]) who stated that pt is welcome back upon discharge with a few days notice. Angelica reported pt does not have any family contact. ISMA will continue to work with pt, facility and MD to ensure a safe and proper discharge plan.
--- NOTE | 2021-07-22 10:39 | NUR ---
Firearms Report: Air Marshal completed and submitted a [employer] firearms report for 5150 grave disability certifications. A copy of report has been placed in patient chart.
--- NOTE | 2021-07-22 20:07 | NUR ---
UNABLE TO GIVE 1700 MEDS DUE TO ACCESS PROBLEM WITH PYXIES. WASHTUB WORKER HELPER NURSES WILL TRY TO GET IT AVAILABLE FOR PT. JOSE RAMON MADE AWARE.
--- NOTE | 2021-07-23 05:50 | NUR ---
Received to care, lying in bed, yelling intermittently. Refused all medications, food, and fluids. Did not sleep all night. As of now, she continues to yell intermittently. Will continue to monitor for safety.
[2021-07-23] MEDS: LEVOTHYROXINE SODIUM 25 MCG TABLET PO SCH (07:00)
[2021-07-23 07:30] VITALS: BP 165/58
[2021-07-23] MEDS: CEphaleXIN 500 MG CAPSULE PO SCH (09:00)
[2021-07-23] MEDS: risperiDONE-M 0.5 MG TAB.RAPDIS PO SCH ×2 (09:00→21:00)
[2021-07-23] MEDS: DOCUSATE SODIUM 100 MG CAPSULE PO SCH ×2 (09:00→16:45)
[2021-07-23] MEDS: HYDROCHLOROTHIAZIDE 25 MG TABLET PO SCH (09:00)
[2021-07-23] MEDS: FAMOTIDINE 20 MG TABLET PO SCH (09:00)
[2021-07-23] MEDS: AMLODIPINE 5 MG TABLET PO SCH (09:00)
[2021-07-23] MEDS: GLUCERNA 1.2 1000ML LIQUID PO SCH ×3 (09:00→16:45)
[2021-07-23] MEDS: LORAZEPAM 0.5 MG TABLET PO PRN (09:53)
--- NOTE | 2021-07-23 15:51 | NUR ---
Gps/Inspector Multifocal Lens- Remains in her room in bed, refusing to eat, refusing po meds. Talking out loud in Hong Konger , when tried to interact with patient in Hong Konger, she stated" I dont understand you" in Indonesian .Encouraged to attend her group tx.
[2021-07-24] MEDS: LEVOTHYROXINE SODIUM 25 MCG TABLET PO SCH (07:00)
[2021-07-24] MEDS: GLUCERNA 1.2 1000ML LIQUID PO SCH ×3 (09:00→17:00)
[2021-07-24] MEDS: FAMOTIDINE 20 MG TABLET PO SCH (09:00)
[2021-07-24] MEDS: DOCUSATE SODIUM 100 MG CAPSULE PO SCH ×2 (09:00→17:00)
[2021-07-24] MEDS: HYDROCHLOROTHIAZIDE 25 MG TABLET PO SCH (09:00)
[2021-07-24] MEDS: risperiDONE-M 0.5 MG TAB.RAPDIS PO SCH ×2 (09:00→21:59)
[2021-07-24] MEDS: AMLODIPINE 5 MG TABLET PO SCH (09:00)
--- NOTE | 2021-07-24 09:15 | NUR ---
Gps/Machine Gun Mechanic- Gets agitated when staff tries to assist with her care , refusing vital signs be taken, refusing routine meds, yells , screaming at staff , stays in her room all the time.
--- NOTE | 2021-07-25 04:25 | NUR ---
Received to care, lying in bed, yelling intermittently. Refused all medications, food, and fluids. Did not hardly sleep all night. As of now, she continues to yell intermittently. Will continue to monitor for safety. Addendum: 07/25/21 at 0735 by MARK OSBORNE LVN CORRECTION; pt slept well, last night
[2021-07-25] MEDS: LEVOTHYROXINE SODIUM 25 MCG TABLET PO SCH (07:00)
[2021-07-25] MEDS: AMLODIPINE 5 MG TABLET PO SCH (08:17)
[2021-07-25] MEDS: FAMOTIDINE 20 MG TABLET PO SCH (08:17)
[2021-07-25] MEDS: DOCUSATE SODIUM 100 MG CAPSULE PO SCH ×2 (08:17→17:00)
[2021-07-25] MEDS: GLUCERNA 1.2 1000ML LIQUID PO SCH ×3 (08:17→17:56)
[2021-07-25] MEDS: HYDROCHLOROTHIAZIDE 25 MG TABLET PO SCH (08:17)
[2021-07-25] MEDS: risperiDONE-M 0.5 MG TAB.RAPDIS PO SCH ×2 (08:18→21:00)
[2021-07-25 16:21] VITALS: BP 141/83
--- NOTE | 2021-07-25 21:49 | NUR ---
DR COUCH MADE ROUNDS AND NOTIFY MD THAT PATIENT UNCOOPERATIVE WITH MEDICATIONS, REFUSED ALL MEDS, CONT TO MONITOR.
--- NOTE | 2021-07-26 06:30 | NUR ---
PATIENT SLEPT FOR 10.30, REFUSED ALL MEDICATIONS, SENDING STAFF AWAY DONT WANT TO INTERACT WITH PEOPLE, KEPT COMFORTABLE.
[2021-07-26] MEDS: LEVOTHYROXINE SODIUM 25 MCG TABLET PO SCH (06:49)
[2021-07-26] MEDS: FAMOTIDINE 20 MG TABLET PO SCH (09:00)
[2021-07-26] MEDS: DOCUSATE SODIUM 100 MG CAPSULE PO SCH ×2 (09:00→17:00)
[2021-07-26] MEDS: HYDROCHLOROTHIAZIDE 25 MG TABLET PO SCH (09:00)
[2021-07-26] MEDS: risperiDONE-M 0.5 MG TAB.RAPDIS PO SCH ×2 (09:00→20:28)
[2021-07-26] MEDS: AMLODIPINE 5 MG TABLET PO SCH (09:00)
[2021-07-26] MEDS: GLUCERNA 1.2 1000ML LIQUID PO SCH ×3 (10:38→17:13)
--- NOTE | 2021-07-26 10:39 | NUR ---
pt refused all medications, refused vital signs states she doesn't want anything. comfortably resting in bed. charge nurse aware
--- NOTE | 2021-07-26 16:31 | NUR ---
Notified Dr. Galan pt's [facility] hearing is schedule for 07/27/21/ Tuesday 11;30 am.
--- NOTE | 2021-07-26 18:11 | NUR ---
Patient in her room no acute distress. Refused all her meds, vs, meals states she doesn't need anything. Encouraged liquids and only somewhat compliant. Denies pain. MD is aware of refusal. Needs attended. Kept comfortable.
[2021-07-26 20:11] VITALS: BP 130/77
[2021-07-27] MEDS: LEVOTHYROXINE SODIUM 25 MCG TABLET PO SCH (06:02)
[2021-07-27] MEDS: GLUCERNA 1.2 1000ML LIQUID PO SCH ×3 (08:49→17:00)
[2021-07-27] MEDS: DOCUSATE SODIUM 100 MG CAPSULE PO SCH ×2 (08:49→17:00)
[2021-07-27] MEDS: HYDROCHLOROTHIAZIDE 25 MG TABLET PO SCH (08:49)
[2021-07-27] MEDS: FAMOTIDINE 20 MG TABLET PO SCH (08:50)
[2021-07-27] MEDS: risperiDONE-M 0.5 MG TAB.RAPDIS PO SCH ×3 (08:50→21:00)
[2021-07-27] MEDS: AMLODIPINE 5 MG TABLET PO SCH (08:50)
[2021-07-27] MEDS: OLANZAPINE 10 MG VIAL IM PRN ×2 (12:16→21:04)
--- NOTE | 2021-07-27 16:40 | NUR ---
GPS: Nursing Notes: Thought Disorder: Patient is awake and responding to her name, poor impulse control, poor anger management, resistant with nursing care, episodes of striking out to staff when trying to assist her with ADL's, continue to refuse her PO medications, refusing to shower, responding to internal stimuli by talking to unseen others, unable to formulate a viable plan for self care, continue to monitor for safety, continue with treatment plan.
[2021-07-27 20:00] VITALS: BP 96/51
--- NOTE | 2021-07-28 02:49 | NUR ---
Received patient sitting up in her bed, responding to internal stimuli. Using a nurse aide evaluator, the patient refused to take her PO medications and received a injection d/t the rise in place. The patient tolerated it well. This patient is argumentative and confused. Refusing most care, bathing and VS . Safety stratiges are in place. Monitoring for further behavior escalation and continuing to encourage medication compliance, through education.
[2021-07-28] MEDS: LEVOTHYROXINE SODIUM 25 MCG TABLET PO SCH (06:13)
[2021-07-28] MEDS: DOCUSATE SODIUM 100 MG CAPSULE PO SCH ×2 (08:20→16:54)
[2021-07-28] MEDS: GLUCERNA 1.2 1000ML LIQUID PO SCH ×3 (08:20→16:55)
[2021-07-28] MEDS: FAMOTIDINE 20 MG TABLET PO SCH (08:20)
[2021-07-28] MEDS: AMLODIPINE 5 MG TABLET PO SCH (08:20)
[2021-07-28] MEDS: HYDROCHLOROTHIAZIDE 25 MG TABLET PO SCH (08:20)
[2021-07-28] MEDS: risperiDONE-M 0.5 MG TAB.RAPDIS PO SCH ×2 (08:21→21:00)
[2021-07-28] MEDS: OLANZAPINE 10 MG VIAL IM PRN ×2 (08:57→20:13)
[2021-07-28 11:38] LABS: HEMATOCRIT 31.7 % (31.2-41.9); MEAN CORPUSCULAR HEMOGLOBIN 29.7 uug (24.7-32.8); MEAN CORPUSCULAR VOLUME 88.6 fL (75.5-95.3); PLATELET COUNT (AUTO) 207 K/uL (179-408)
--- NOTE | 2021-07-28 11:41 | NUR ---
GPS: Nursing Notes: Thought Disorder: Patient is awake and responding to her name, impaired judgment, poor insight, labile, unpredictable behavior, responding to internal stimuli by shouting to unseen others, refusing her PO medications, refusing nursing care, verbal abusive toward staff, resistant with nursing care, refusing to shower, paranoid behavior, disoriented, disorganized, threatening staff, episodes of talking incoherently, unable to formulate a viable plan for self care, continue to monitor for safety, continue with treatment plan.
[2021-07-28 11:46] LABS: ALANINE AMINOTRANSFERASE 10 U/L (14-59); ALKALINE PHOSPHATASE 52 U/L (50-136); ASPARTATE AMINOTRANSFERASE 5 U/L (15-37); BILIRUBIN,TOTAL 0.3 mg/dL (0.2-1.0); CARBON DIOXIDE 32 mmol/L (21-32); CHLORIDE 105 mmol/L (98-107); CREATININE 1.7 mg/dL (0.6-1.3); GLUCOSE 121 mg/dL (74-106); MAGNESIUM 2.3 mg/dL (1.8-2.4); PHOSPHOROUS 2.5 mg/dL (2.5-4.9); POTASSIUM 4.6 mmol/L (3.5-5.1); TOTAL PROTEIN, SERUM 6.9 g/dL (6.4-8.2); UREA NITROGEN, BLOOD 65 mg/dL (7-18)
[2021-07-28 16:00] VITALS: BP 105/82
[2021-07-28 20:00] VITALS: BP 116/76
--- NOTE | 2021-07-29 01:48 | NUR ---
No changes from the previous night. The patient continues to refuse care, VS, showering and PO medications. Im injection was given per Marsha . When talking with the patient she becomes elevated, rude and argumentative. This patient is unable to engage in any meaningful conversation or answer questions appropriately. Safety Stratiges remain in place and continuing to monitor for aggression and behavior escalation. When trying to talk or explain something , the patient starts to yell and talks over the technical report writer. Multiple times during the night, this patient is heard responding to internal stimuli loudly, which can be disruptive to the other patients who are trying to sleep.
[2021-07-29] MEDS: LEVOTHYROXINE SODIUM 25 MCG TABLET PO SCH (06:15)
[2021-07-29 07:40] VITALS: BP 138/82
[2021-07-29] MEDS: DOCUSATE SODIUM 100 MG CAPSULE PO SCH ×2 (08:57→17:00)
[2021-07-29] MEDS: GLUCERNA 1.2 1000ML LIQUID PO SCH (08:57)
[2021-07-29] MEDS: HYDROCHLOROTHIAZIDE 25 MG TABLET PO SCH (08:57)
[2021-07-29] MEDS: AMLODIPINE 5 MG TABLET PO SCH (08:58)
[2021-07-29] MEDS: FAMOTIDINE 20 MG TABLET PO SCH (08:58)
[2021-07-29] MEDS: OLANZAPINE 10 MG VIAL IM PRN ×2 (08:59→21:51)
[2021-07-29] MEDS: risperiDONE-M 0.5 MG TAB.RAPDIS PO SCH ×2 (08:59→21:00)
[2021-07-29] MEDS ORDERED: IV NS 1000 ML 1,000 ML IV ONE ×2 (09:15→15:00)
[2021-07-29] MEDS: GLUCERNA SHAKE VANILLA 237 ML CAN PO SCH ×2 (13:00→17:00)
[2021-07-29 16:00] VITALS: BP 126/77
--- NOTE | 2021-07-29 17:15 | NUR ---
Received patient awake in her room. A/O X 1 to person, place. Pt. is suspicious with medications, argumentative, refusing medications. Computer Network Engineer ordered IV Normal Saline 1000 ml once, IV lock is placed in the rigth arm. Ambulates without assistance. Denies pain or any discomfort. Denies SI/HI AH/VH. Respirations are regular, even, and unlabored. Patient appearance is disheveled. Emotional support provided. Fall and safety precautions implemented.
[2021-07-29 20:12] VITALS: BP 165/68
[2021-07-30] MEDS: risperiDONE-M 0.5 MG TAB.RAPDIS PO SCH ×3 (02:36→20:47)
--- NOTE | 2021-07-30 02:39 | NUR ---
Patient has been more relaxed from the start of the shift, as opposed to the previous night. The patient is still responding to internal stimuli, but is eating and drinking and did take the PO medication. The IM was not needed. Encouragement and reassurance provided. Safety stratiges are in place. Continuing to monitor for yelling and behavior escalation. Patient is able to make her needs know at this time.
[2021-07-30] MEDS: LEVOTHYROXINE SODIUM 25 MCG TABLET PO SCH (06:10)
[2021-07-30 08:00] VITALS: BP 146/58
[2021-07-30] MEDS: GLUCERNA SHAKE VANILLA 237 ML CAN PO SCH ×3 (09:00→17:18)
[2021-07-30] MEDS: FAMOTIDINE 20 MG TABLET PO SCH (09:00)
[2021-07-30] MEDS: AMLODIPINE 5 MG TABLET PO SCH (09:00)
[2021-07-30] MEDS: DOCUSATE SODIUM 100 MG CAPSULE PO SCH ×2 (09:00→17:00)
[2021-07-30] MEDS: HYDROCHLOROTHIAZIDE 25 MG TABLET PO SCH (09:00)
[2021-07-30] MEDS: OLANZAPINE 10 MG VIAL IM PRN (09:17)
[2021-07-30 16:00] VITALS: BP 115/61
[2021-07-30 20:00] VITALS: BP 150/81
[2021-07-30] MEDS: LORAZEPAM 0.5 MG TABLET PO PRN (20:47)
[2021-07-31] MEDS: LEVOTHYROXINE SODIUM 25 MCG TABLET PO SCH (07:09)
[2021-07-31 07:30] VITALS: BP 175/72
[2021-07-31] MEDS: risperiDONE-M 0.5 MG TAB.RAPDIS PO SCH ×2 (08:41→20:35)
[2021-07-31] MEDS: FAMOTIDINE 20 MG TABLET PO SCH (08:42)
[2021-07-31] MEDS: HYDROCHLOROTHIAZIDE 25 MG TABLET PO SCH (08:42)
[2021-07-31] MEDS: AMLODIPINE 5 MG TABLET PO SCH (08:44)
[2021-07-31] MEDS: DOCUSATE SODIUM 100 MG CAPSULE PO SCH ×2 (08:49→16:11)
[2021-07-31] MEDS: GLUCERNA SHAKE VANILLA 237 ML CAN PO SCH ×3 (08:50→17:00)
[2021-07-31 10:29] LABS: HEMATOCRIT 31.5 % (31.2-41.9); MEAN CORPUSCULAR HEMOGLOBIN 29.1 uug (24.7-32.8); MEAN CORPUSCULAR VOLUME 89.7 fL (75.5-95.3); PLATELET COUNT (AUTO) 203 K/uL (179-408)
[2021-07-31 10:49] LABS: CREATININE 1.1 mg/dL (0.6-1.3); MAGNESIUM 2.5 mg/dL (1.8-2.4); PHOSPHOROUS 3.7 mg/dL (2.5-4.9); POTASSIUM 4.5 mmol/L (3.5-5.1)
[2021-07-31] MEDS ORDERED: risperiDONE-M 0.5 MG TAB.RAPDIS PO ONE (12:15)
[2021-07-31 15:27] VITALS: BP 157/68
[2021-07-31 19:47] VITALS: BP 156/80
[2021-08-01] MEDS: LORAZEPAM 0.5 MG TABLET PO PRN (00:16)
--- NOTE | 2021-08-01 05:17 | NUR ---
pt has been compliant with meds; slept onj and off; episodes of screaming during the night; given ativan prn x1 for agitation; safety maintained; continue to monitor; continue plan of care.
[2021-08-01] MEDS: LEVOTHYROXINE SODIUM 25 MCG TABLET PO SCH (06:06)
[2021-08-01 07:30] VITALS: BP 112/64
[2021-08-01] MEDS: risperiDONE-M 0.5 MG TAB.RAPDIS PO SCH ×2 (08:19→20:31)
[2021-08-01] MEDS: DOCUSATE SODIUM 100 MG CAPSULE PO SCH ×3 (08:19→17:00)
[2021-08-01] MEDS: FAMOTIDINE 20 MG TABLET PO SCH (08:19)
[2021-08-01] MEDS: AMLODIPINE 5 MG TABLET PO SCH (08:20)
[2021-08-01] MEDS: GLUCERNA SHAKE VANILLA 237 ML CAN PO SCH ×3 (08:20→17:41)
[2021-08-01] MEDS: HYDROCHLOROTHIAZIDE 25 MG TABLET PO SCH (08:23)
[2021-08-01 20:00] VITALS: BP 134/63
[2021-08-01] MEDS: TEMAZEPAM 7.5 MG CAPSULE PO PRN (22:44)
[2021-08-02] MEDS: LEVOTHYROXINE SODIUM 25 MCG TABLET PO SCH (06:07)
[2021-08-02] MEDS: FAMOTIDINE 20 MG TABLET PO SCH (08:08)
[2021-08-02] MEDS: DOCUSATE SODIUM 100 MG CAPSULE PO SCH ×2 (08:08→17:03)
[2021-08-02] MEDS: risperiDONE-M 0.5 MG TAB.RAPDIS PO SCH ×2 (08:08→20:09)
[2021-08-02] MEDS: AMLODIPINE 5 MG TABLET PO SCH (08:09)
[2021-08-02] MEDS: HYDROCHLOROTHIAZIDE 25 MG TABLET PO SCH (08:11)
[2021-08-02] MEDS: GLUCERNA SHAKE VANILLA 237 ML CAN PO SCH ×3 (08:11→17:16)
--- NOTE | 2021-08-02 15:50 | NUR ---
Received patient sleeping in her room. A/O X 2 to person, place. Pt. is isolative, withdrawn, quiet, depressed, confused at times, disorganized. Compliant with medications. Ambulates without assistance. Denies pain or any discomfort. Denies SI/HI AH/VH. Respirations are regular and unlabored. Patient appearance is disheveled. Pt. is encourage to vent feelings and emotions. Fall and safety precautions implemented.
[2021-08-02 16:04] VITALS: BP 134/68
[2021-08-02 20:00] VITALS: BP 129/53
[2021-08-03] MEDS: LEVOTHYROXINE SODIUM 25 MCG TABLET PO SCH (06:00)
[2021-08-03 07:41] VITALS: BP 129/70
[2021-08-03] MEDS: FAMOTIDINE 20 MG TABLET PO SCH (08:34)
[2021-08-03] MEDS: risperiDONE-M 0.5 MG TAB.RAPDIS PO SCH ×4 (08:34→22:23)
[2021-08-03] MEDS: DOCUSATE SODIUM 100 MG CAPSULE PO SCH ×2 (08:34→16:26)
[2021-08-03] MEDS: AMLODIPINE 5 MG TABLET PO SCH (08:36)
[2021-08-03] MEDS: GLUCERNA SHAKE VANILLA 237 ML CAN PO SCH ×3 (08:36→16:27)
[2021-08-03] MEDS: HYDROCHLOROTHIAZIDE 25 MG TABLET PO SCH (08:36)
--- NOTE | 2021-08-03 13:20 | NUR ---
GPS: Nursing Notes: Thought Disorder: Patient is awake and responding to her name, internally preoccupied, isolative and withdrawn in her room, needs a lot of prompting to participate in therapeutic groups, confused, disoriented, disorganized, trying to get into the nursing station, redirected and reoriented during shift, stated "I want to get a milk... I can go in..", paranoid behavior at times, unable to formulate a viable plan for self care, continue to monitor for safety, continue with treatment plan.
[2021-08-03 17:05] VITALS: BP 125/57
[2021-08-03 19:58] VITALS: BP 116/56
[2021-08-03] MEDS: OLANZAPINE 10 MG VIAL IM PRN (22:31)
[2021-08-04] MEDS: LEVOTHYROXINE SODIUM 25 MCG TABLET PO SCH (06:23)
[2021-08-04 07:30] VITALS: BP 133/53
[2021-08-04] MEDS: AMLODIPINE 5 MG TABLET PO SCH (08:33)
[2021-08-04] MEDS: FAMOTIDINE 20 MG TABLET PO SCH (08:33)
[2021-08-04] MEDS: DOCUSATE SODIUM 100 MG CAPSULE PO SCH ×2 (08:34→16:13)
[2021-08-04] MEDS: GLUCERNA SHAKE VANILLA 237 ML CAN PO SCH ×3 (08:34→16:14)
[2021-08-04] MEDS: risperiDONE-M 0.5 MG TAB.RAPDIS PO SCH ×2 (08:34→21:15)
[2021-08-04] MEDS: HYDROCHLOROTHIAZIDE 25 MG TABLET PO SCH (08:37)
--- NOTE | 2021-08-04 14:06 | NUR ---
GPS: Nursing Notes: Thought Disorder: Patient is awake and responding to her name, impaired judgment, argumentative, isolative in her room, no interactions with peers, needs a lot of prompting for minimal participation in therapeutic groups, confused at times, disoriented, episodes of talking over you, but compliant with her medications, unable to formulate a viable plan for self care, continue to monitor for safety, continue with treatment plan.
[2021-08-04 15:52] VITALS: BP 105/55
[2021-08-04 20:08] VITALS: BP 116/52
[2021-08-05] MEDS: LEVOTHYROXINE SODIUM 25 MCG TABLET PO SCH (06:49)
[2021-08-05 07:30] VITALS: BP 126/44
[2021-08-05] MEDS: risperiDONE-M 0.5 MG TAB.RAPDIS PO SCH ×2 (08:59→21:56)
[2021-08-05] MEDS: DOCUSATE SODIUM 100 MG CAPSULE PO SCH ×2 (08:59→17:13)
[2021-08-05] MEDS: AMLODIPINE 5 MG TABLET PO SCH (09:02)
[2021-08-05] MEDS: FAMOTIDINE 20 MG TABLET PO SCH (09:02)
[2021-08-05] MEDS: GLUCERNA SHAKE VANILLA 237 ML CAN PO SCH ×3 (09:05→17:31)
[2021-08-05] MEDS: HYDROCHLOROTHIAZIDE 25 MG TABLET PO SCH (09:08)
--- NOTE | 2021-08-05 09:31 | NUR ---
SNF Referral: Plumber Maintenance faxed patient's referral packet including: History and Physical, Consultation, Progress Notes, Medication List and Labs to the following facilities for review and possible senior care placement: [address] [address] ([phone]).
[2021-08-05] MEDS ORDERED: DOCUSATE SODIUM 100 MG CAPSULE PO SCH (10:15)
[2021-08-05 12:10] LABS: HEMATOCRIT 26.9 % (31.2-41.9)
--- NOTE | 2021-08-05 12:15 | NUR ---
ISMA Discharge Update: ISMA contacted pt's social studies department chair from [facility] [address] [place] [address] and spoke with Tiffany ([phone]) who stated that they do not offer transportation and stated they may be able to provide a private automobile drivers in a regular vehicle. ISMA stated that the psychiatrist stated pt is not appropriate to return to an assisted living and requires closer care at a SNF. ISMA informed Tiffany in an additional call and left a voicemail stating the doctor's discharge order to a SNF and the reason and for a call back for further questions.
[2021-08-05 12:18] LABS: CREATININE 1.1 mg/dL (0.6-1.3); POTASSIUM 4.6 mmol/L (3.5-5.1)
[2021-08-05] MEDS: MIRALAX 17 GM POWD.PACK PO SCH (13:18)
--- NOTE | 2021-08-05 15:23 | NUR ---
Received patient sleeping in her room. A/O X 1 -2 to person. Pt. is isolative, withdrawn, quiet, does not engage in verbal approach. Compliant with medications. Ambulates independently. Denies SI/HI AH/VH. Denies SOB. Denies pain or any discomfort. Continent of bladder and bowel. Fall and safety precautions implemented. Pt. is encourage to vent feelings and emotions. Fall and safety precautions implemented.
[2021-08-05 18:31] LABS: HEMATOCRIT 26.3 % (31.2-41.9)
[2021-08-05 20:16] VITALS: BP 104/55
[2021-08-05] MEDS: TEMAZEPAM 7.5 MG CAPSULE PO PRN (23:42)
--- NOTE | 2021-08-06 05:06 | NUR ---
Received to care lying in bed, calm and cooperativve. Compliant with medications, and staff direction. PRN Restoril was given at bedtime. Saltine crackers and orange juice was given at bedtime, and once, during the night, at her request. As of now, she remains asleep. no distress, noted.
[2021-08-06] MEDS: LEVOTHYROXINE SODIUM 25 MCG TABLET PO SCH (06:39)
[2021-08-06 07:20] LABS: HEMATOCRIT 26.5 % (31.2-41.9)
[2021-08-06 08:00] VITALS: BP 152/82
[2021-08-06] MEDS: MIRALAX 17 GM POWD.PACK PO SCH (09:00)
--- NOTE | 2021-08-06 09:00 | NUR ---
GPS: PT RECEIVED ON BED, ISOLATED. LIKES STAYING INSIDE THE ROOM. NO AGITATION NOTED. DENIES ANY PAIN OR DISCOMFORT. [facility]. PT AGREES TO DISCHARGE. PSYCHIATRIST AND HOT METAL MIXER OPERATOR MADE AWARE.
--- NOTE | 2021-08-06 09:16 | NUR ---
ISMA Discharge Note: Pt will be discharged to [facility] [address] ([phone]) via Ambulance transportation at 11AM. ISMA spoke with admin coordinator, Shauna ([phone]) at the facility who states they are ready to accept the patient today. Pt is aware and agreeable with discharge plans. Per Jeromy from Public Guardian's office, stated that effective since 2018, pt does not have any form of conservatorship and pt does not have any family contact information in their office. Pt is alert and oriented x0, is unable to plan for self-care at this time; however, is willing to accept care at SNF. Pt denies any suicidal or homicidal ideation. Pt will follow-up at the facility with Psychiatrist, Dr. Tang and Astrochemist, Dr. Roman. Pt presents with calm mood and congruent affect. PHARMACY: [facility] ([phone]) [address] [facility] [id number].
[2021-08-06] MEDS: risperiDONE-M 0.5 MG TAB.RAPDIS PO SCH (09:18)
[2021-08-06] MEDS: FAMOTIDINE 20 MG TABLET PO SCH (09:18)
[2021-08-06] MEDS: DOCUSATE SODIUM 100 MG CAPSULE PO SCH (09:18)
[2021-08-06 09:19] VITALS: BP 152/82
[2021-08-06] MEDS: AMLODIPINE 5 MG TABLET PO SCH (09:19)
[2021-08-06] MEDS: HYDROCHLOROTHIAZIDE 25 MG TABLET PO SCH (09:19)
[2021-08-06] MEDS: GLUCERNA SHAKE VANILLA 237 ML CAN PO SCH (09:21)
--- NOTE | 2021-08-06 13:18 | NUR ---
GPS: PT DISCHARGED TO THE FACILITY PICKED UP BY AMBULANCE AND WILL BE TRANSFERRED TO [facility]. DENIES ANY PAIN OR DISCOMFORT, ALERT AND ORIENTED X2. PT AWARE OF THE DISCHARGE. ALL THINGS AND BELONGINGS GIVEN AND PT REFUSED TO SIGN DISCHARGE PAPERS. PT COMPLIANT WITH CARE AND MEDS. REPORT GIVEN TO PEDRO, THE ADMITTING NURSE AT [facility]. DR POOLE WILL BE FOLLOWING UP WITH THE PT AT THE FACILITY.
== END 2021-08-06 13:29 | DRG 885 ==
LOC: GPS 18:20
PROVIDERS: ADMIT Psychiatry & Neurology Psychosomatic Medicine; ATTEND Internal Medicine
DX: F25.0 Schizoaffective disorder, bipolar type (principal); F01.50 Vascular dementia, unspecified severity, without behavioral disturbance, psychotic disturbance, mood disturbance, and anxiety; N17.0 Acute kidney failure with tubular necrosis; E44.0 Moderate protein-calorie malnutrition; D68.59 Other primary thrombophilia; Z68.1 Body mass index [BMI] 19.9 or less, adult; D64.9 Anemia, unspecified; E78.5 Hyperlipidemia, unspecified; E03.9 Hypothyroidism, unspecified; I10 Essential (primary) hypertension; I25.10 Atherosclerotic heart disease of native coronary artery without angina pectoris; K64.9 Unspecified hemorrhoids; K59.00 Constipation, unspecified; R62.7 Adult failure to thrive; I25.2 Old myocardial infarction; Z86.73 Personal history of transient ischemic attack (TIA), and cerebral infarction without residual deficits; F29 Unspecified psychosis not due to a substance or known physiological condition; Z87.440 Personal history of urinary (tract) infections; Z20.822 Contact with and (suspected) exposure to COVID-19
CPT/HCPCS: 36415; 83735; 84100; 85018; 85025; 97161; J2358; J7040; Z7610